=== PATIENT | male | born 1970 | race Caucasian/White ===

== ENCOUNTER 2021-10-15 11:16 | Outpatient (REF) | payer OTHER, SELFPAY | END 2021-10-15 11:17 | disposition home or self-care (01) | LOC: HO.BBR 11:16 | PROVIDERS: PCP Internal Medicine; Visit Provider Internal Medicine | DX: Z13.89 Encounter for screening for other disorder (principal) ==

== ENCOUNTER 2021-11-12 12:01 | Outpatient (REF) | payer OTHER, SELFPAY | END 2021-11-12 12:02 | disposition home or self-care (01) | LOC: HO.BBR 12:01 | PROVIDERS: Visit Provider Internal Medicine | DX: Z13.89 Encounter for screening for other disorder (principal) ==

== ENCOUNTER 2021-12-19 11:08 | Outpatient (REF) | payer OTHER, SELFPAY | END 2021-12-19 11:09 | disposition home or self-care (01) | LOC: HO.BBR 11:08 | PROVIDERS: Visit Provider Internal Medicine | DX: Z13.89 Encounter for screening for other disorder (principal) ==

== ENCOUNTER 2022-01-20 12:11 | Outpatient (REF) | payer OTHER, SELFPAY | END 2022-01-20 12:12 | disposition home or self-care (01) | LOC: HO.BBR 12:11 | PROVIDERS: Visit Provider Internal Medicine | DX: Z13.89 Encounter for screening for other disorder (principal) ==

== ENCOUNTER 2022-02-20 09:04 | Outpatient (REF) | payer OTHER, SELFPAY | END 2022-02-20 09:05 | disposition home or self-care (01) | LOC: HO.BBR 09:04 | PROVIDERS: Visit Provider Internal Medicine | DX: Z13.89 Encounter for screening for other disorder (principal) ==

== ENCOUNTER 2022-03-30 10:00 | Outpatient (REF) | payer OTHER, SELFPAY ==
[2022-03-30 11:48] LABS: Iron 160 mcg/dL (45-160); Percent Iron Saturation 58 % (15-50); Total Iron Binding Capacity 278 mcg/dL (228-428); Unsaturated Iron Binding 118 ug/dL
[2022-03-30 11:52] LABS: Ferritin 150 ng/mL (20-250)
--- NOTE | 2024-02-16 10:00 | MHC.HEMONCMA ---
FROM HEMATOLOGY/ONCOLOGY called patient for a new patient appointment that we received from [facility], prior to calling patient i faxed referral back to [place] and told them for a DX of hemochromotosis we need atleast a ferritin/iron/HFE - been a week and have not received any of those labs. i called patient and explained to him that we need atleast a ferritin and an iron from his pcp prior to scheduling him an appointment here. he was upset and asked cant you just do fresh blood work there? 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
== END 2022-03-30 10:01 | disposition home or self-care (01) ==
LOC: HO.BBR 10:00
PROVIDERS: Visit Provider Internal Medicine
DX: E83.110 Hereditary hemochromatosis (principal)
CPT/HCPCS: 36415; 82728; 83540

== ENCOUNTER 2025-05-17 08:01 | Outpatient (AMB) | payer OTHER, SELFPAY ==
--- NOTE | 2025-05-17 08:06 | MHC.OFFVIS ---
Vital Signs 05/17/25 08:13 Height 5 ft 11 in Weight 226 lb BMI 31.5 BP 111/58 L Blood Pressure Location Lt brachial Position Sitting Pulse 50 Pulse Oximetry (%) 95 Oxygen Delivery Method Room Air Intake Visit Reasons: colo screening Intake Note: Patient new consult for 1st pre Colonoscopy screening. Patient denies any GI issues for today visit. Piece Hand Required: No Accompanied by: Self / Same As Patient Allergies Penicillins Allergy (Mild, Verified 05/17/25 08:24) Hives Medication List - Last Reconciled 05/17/25 by Cheyanne Vaughan CNP aspirin 81 mg PO DAILY clopidogrel 75 mg PO DAILY escitalopram oxalate 20 mg PO DAILY ezetimibe 10 mg PO DAILY fenofibrate 160 mg PO DAILY metoprolol succinate ER 12.5 mg PO BEDTIME rosuvastatin 10 mg PO DAILY testosterone 178 mg transdermal QAM HPI HPI colo screening: Details: Patient is a 54-year-old male with PMH of PADMA, hypertension, hyperlipidemia, CAD s/p [place] and arrest followed by stent placement, August 2023. Referred by PCP for pre colonoscopy screening This will be Johnny's first colonoscopy. He reports no prior GI cancer screening via stool testing. He reports having daily bowel movements without concerns for constipation, diarrhea, overt rectal bleeding, or changes in stool caliber. He denies abdominal pain, nausea, vomiting, or dysphagia. There is no history of unexplained weight loss; weight has remained stable with minor (<= 5lb) fluctuations. No heartburn reported. Notably, he experienced a cardiac arrest due to complete circumflex coronary artery blockage in August and subsequently underwent cardiac intervention; he remains under cardiology care with ongoing medication management. No other non-GI symptoms or comorbidities relevant to GI procedure risk reported. Patient denies: appetite changes, regurgitation,dysphasia, unintentional wt loss, ab pain or melena/hematochezia. 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 PFSH Medical History (Updated 05/17/25 @ 08:11 by Cheyanne Vaughan CNP) Colon cancer screening Surgical History Hx of right coronary artery stent placement Family History (Updated 05/17/25 @ 08:29 by Cheyanne Vaughan CNP) Family/Other CAD (coronary artery disease) Social History Household Members: Family Alcohol intake: never Patient Tobacco Use Status: Former Tobacco user Use of substances other than those prescribed or required for medical reasons: No Review of Systems Const Reports as per HPI ENT Reports as per HPI Card Reports as per HPI Resp Reports as per HPI GI Reports as per HPI Reports as per HPI Physical Exam Const General: healthy appearing, no acute distress and well developed Nutritional Appearance: average body habitus Orientation/consciousness: patient oriented x3 HEENT Head: Yes normal to inspection, Yes normocephalic and Yes atraumatic Face and sinus: Yes normal facial exam Eyes General: appearance normal, both eyes and all related structures Neck Neck: Yes normal visual inspection Resp Effort & Inspection: normal respiratory effort, able to speak in complete sentences, no tracheal deviation and symmetric chest movement Cardio Jugular venous distension: no JVD GI Auscultation: normal bowel sounds Neuro General: patient oriented x3 Gait exam (Neuro): Normal gait present Psych Appearance: grossly normal Mental Status: mental status grossly normal Speech and movement: Normal speech and movement present Affect: normal affect Attitude: cooperative Thought process: Normal thought process present Thought content: Normal thought content present Insight: Good insight present (Psych) Judgement: Good judgement present (Psych) Assessment & Plan Assessment & Plan (1) Colon cancer screening: Code(s): Z12.11 - Encounter for screening for malignant neoplasm of colon Category: Medical Plan: Due for index screening colonoscopy. No alarm features. Medications: -prescriptions for laxative tablets and MiraLax sent to pharmacy; instructions for Gatorade purchase and clear liquid diet given. - understands we will coordinate with cardiology for benjamin-procedural hold of aspirin and clopidogrel (per prior guidance, typically 5?7 days before procedure). Nurse to review med holds per protocol. Patient educated on scheduling process, procedure preparation, including avoiding certain foods and ensuring clear liquid intake Advised on necessity for ride post-procedure due to sedation. Plan Follow-up after colonoscopy as warranted or sooner if needed Time: I spent a total of 30 minutes on the date of encounter which includes: Preparing to see the patient (reviewed previous documentation, test results and medical history) Performing a medically appropriate exam and/or evaluation Ordering medications, tests, and procedures Documenting clinical information in the health record Orders: Referrals GI Procedure Notification Z12.11 - Encounter for screening for malignant neoplasm of colon Medications: New bisacodyl Take per colonoscopy instructions 5 mg PO ONCE 4 tabs 0RF polyethylene glycol 3350 (Miralax) per colonoscopy prep instructions 238 grams PO ONCE 238 grams 0RF Coding Level of Care Code New Pt New Pt Level 3 (26962) Patient Type New Diagnoses Colon cancer screening Z12.11
--- OUTSIDE RECORDS SUMMARY | 2025-05-17 08:08 | XMS_ITS | Patient Health Record ---
Author Organization [facility] Address [address] [place] [address] Care Team Providers Care Pedicurist Name Role Phone MERI GANN Primary Care Provider Allergies Allergen (clinical drug ingredient) Drug/Non Drug Allergy documented on EMR Reaction Allergy Type Onset Date Status penicillamine penicillAMINE Unknown Drug Allergy Active Results Component Value Reference Range Notes PSA (Serial Monitor)-[id number] Reviewed date:12/22/2024 07:28:51 AM Interpretation: Performing Lab:[facility], [facility], [place], Phone - [phone], Director - Josee Notes/Report: Prostate Specific Ag 0.2 0.0-4.0 ng/mL Davy ECLIA methodology. . According to the [place] [employer], Serum PSA should decrease and remain at undetectable levels after radical prostatectomy. The AUA defines biochemical recurrence as an initial PSA value 0.2 ng/mL or greater followed by a subsequent confirmatory PSA value 0.2 ng/mL or greater. Values obtained with different assay methods or kits cannot be used interchangeably. Results cannot be interpreted as absolute evidence of the presence or absence of malignant disease. Hemoglobin [id number] Reviewed date:12/22/2024 07:28:53 AM Interpretation: Performing Lab:[facility], [address], [place], Phone - [phone], Director - Josee Notes/Report: Hemoglobin A1c 5.4 4.8-5.6 % . Prediabetes: 5.7 - 6.4 Diabetes: >6.4 Glycemic control for adults with diabetes: <7.0 Lipid Panel-[id number] Reviewed date:12/22/2024 07:28:56 AM Interpretation: Performing Lab:[facility], [address] [facility], [place], Phone - [phone], Director - MDJodry Notes/Report: Cholesterol, Total 130 100-199 mg/dL Triglycerides 179 0-149 mg/dL HDL Cholesterol 36 >39 mg/dL VLDL Cholesterol Neri 30 5-40 mg/dL LDL Chol Calc ([facility]) 64 0-99 mg/dL Comp. Metabolic Panel (14)-3 Reviewed date:12/22/2024 07:28:59 AM Interpretation: Performing Lab:[facility], [address] [facility], [place], Phone - [phone], Director - MDJoy Notes/Report: Glucose 96 70-99 mg/dL BUN 22 6-24 mg/dL Creatinine 0.93 0.76-1.27 mg/dL eGFR 98 >59 mL/min/1.73 BUN/Creatinine Ratio 24 9-20 Sodium 140 134-144 mmol/L Potassium 4.2 3.5-5.2 mmol/L Chloride 102 96-106 mmol/L Carbon Dioxide, Total 22 20-29 mmol/L Calcium 10.0 8.7-10.2 mg/dL Protein, Total 7.2 6.0-8.5 g/dL Albumin 4.9 3.8-4.9 g/dL Globulin, Total 2.3 1.5-4.5 g/dL Bilirubin, Total 0.5 0.0-1.2 mg/dL Alkaline Phosphatase 41 44-121 IU/L AST (SGOT) 30 0-40 IU/L ALT (SGPT) 36 0-44 IU/L Albumin/Creatinine Ratio,Uri ne-[id number] Reviewed date:12/22/2024 07:29:03 AM Interpretation: Performing Lab:Merritt Armstrong, [address] [facility], [place], Phone - [phone], Director - MDJodry Notes/Report: Creatinine, Urine 28.9 Not Estab. mg/dL Albumin, Urine <3.0 Not Estab. ug/mL Alb/Creat Ratio <10 0-29 mg/g creat Normal: 0 - 29 Moderately increased: 30 - 300 Severely increased: >300 Reason For Referral Reason Evaluation and manag ement - colonoscopy Diagnosis 1 Encounter for screen ing for malignant neoplasm of colon (Z12.11) Referral Organization [facility] Referring Provider First Name MERI Referring Provider Last Name LEE ANN Referring Provider Speciality Internal M edicine Referred Provider Specialty Gastroentero logy General Notes Referral sent to [facility] ([address] [address] ) - Office will call patient for scheduling., Nikolas Saturninoivett 06/28/2024 10:46:23 AM > Referral Priority Routine Reason screening Please e valuate and treat Diagnosis 1 Encounter for screen ing for other digestive system disorders (Z13.818) Referral Organization [facility] Referring Provider First Name JEREZ Referring Provider Last Name [facility] Referring Provider Speciality Internal M edicine Referred Provider Specialty Gastroentero logy General Notes Please call the betzy ent to schedule the appointment, Erica Mcpherson 11/28/2024 03:11:32 PM > Referral Priority Routine Reason Screening- [facility] [place] Please evaluate and treat Diagnosis 1 Encounter for screen ing for malignant neoplasm of skin (Z12.83) Referral Organization [facility] Referring Provider First Name MERI Referring Provider Last Name [facility] Referring Provider Speciality Internal edicine Referred Provider Specialty Dermatology General Notes Please call the betzy ent to schedule the appointment, Erica Mcpherson 11/28/2024 03:08:26 PM > Referral Priority Routine Medications Medication SIG (Take, Route, Frequency, Duration) Notes Start Date End Date Status Metoprolol Succinate 25 MG 1/2 capsule O rally Once a day Active Aspir-81 Active Fenofibrate 160 MG 1 tablet Orally Once a day Active Zetia 10 MG 1 tablet Orally Once a day Active Lipitor 20 MG 1 tablet Orally Once a day Active Plavix 75 MG 1 tablet Orally Once a day Active Lexapro 10 MG 1 tablet Orally Once a day Active Social History Tobacco Use: Social History Observation Description Date Details (start date - stop date) Former Smoker NA - NA Tobacco Control (Standard) Question Answer Notes Tobacco use: Former smoker Problems Problem Type SNOMED Code ICD Code Onset Dates Problem Status W/U Status Risk Notes Problem Mixed hyperlipidemia (468293681) Mixed hyperlipidemia (E78.2) Active confirmed Problem Generalized anxiety disorder (95317371) Generalized anxiety disorder (F41.1) Active confirmed Problem Essential hypertension (77006236) Essential (primary) hypertension (I10) Active confirmed Problem Amnesia (96205067) Complaints of memory disturbance (R41.3) Active confirmed Problem Atherosclerotic heart disease of [place] coronary artery without angina pectoris (042715263037471) Coronary artery disease involving [place] coronary artery of [place] heart without angina pectoris (I25.10) Active confirmed Problem Male hypogonadism (11922036) Hypogonadism in male (E29.1) Active confirmed Vital Signs Heart Rate 60 /min 11/13/2024 Temperature 97.0 degrees Fahrenheit 11/13/2024 Oximetry 96 % 11/13/2024 Blood pressure diastolic 79 mm Hg 11/13/2024 Height 5'11'' in 11/13/2024 Blood pressure systolic 120 mm Hg 11/13/2024 Weight 229.7 lbs 11/13/2024 BMI 32.03 kg/m2 11/13/2024 Encounters Encounter Location Date Provider Diagnosis [address] [place] [address] 06/21/2024 MERI GANN Coronary artery dise ase involving [place] coronary artery of [place] heart without angina pectoris I25.10 ; Essential (primary) hypertension I10 ; Mixed hyperlipidemia E78.2 ; Personal history of nicotine dependence Z87.891 ; Complaints of memory disturbance R41.3 ; Impaired fasting glucose R73.01 ; Hypogonadism in male E29.1 ; Generalized anxiety disorder F41.1 and Encounter for screening for malignant neoplasm of prostate Z12.[address] [place] [address] 11/13/2024 MERI GANN Coronary artery dise ase involving [place] coronary artery of [place] heart without angina pectoris I25.10 ; Annual physical exam Z00.00 ; Essential (primary) hypertension I10 ; Mixed hyperlipidemia E78.2 ; Personal history of nicotine dependence Z87.891 ; Complaints of memory disturbance R41.3 ; Impaired fasting glucose R73.01 ; Hypogonadism in male E29.1 ; Generalized anxiety disorder F41.1 and Encounter for screening for malignant neoplasm of prostate Z12.[address] [place] [address] 06/28/2024 MERI GANN Assessments Encounter Date Diagnosis (ICD Code) Assessment Notes Treatment Notes Treatment Clinical Notes Section Notes 06/21/2024 Essential (primary) hypertension (ICD-10 - I10) Mr. Arriaga is a 53-year-old gentleman with hypertension, hyperlipidemia, CAD s/p heart attack; follows up with Cardiology, hypogonadism, and generalized anxiety disorder here to establish care. Plan is as follows: Hypertension. Blood pressure well controlled on Metoprolol 25 MG, Aspirin and Plavix 75 MG. Hyperlipidemia. Continue Lipitor 20 MG along with Zetia 10 MG and Fenofibrate 60 MG once a day. CAD. s/p cardiac arrest. Stable at this point. Optimize medical management. Weight loss advised. Generalized anxiety disorder. Mood is stable on Lexapro 10 MG daily. Impaired fasting glucose. Dietary restrictions, regimental exercise and weight loss advised. check A1c. Cognitive impairment. Differential diagnosis is atherosclerotic disease/early signs of vascular dementia, status post cardiac arrest. No need for pharmacotherapy at this point. Advised lifestyle changes, incorporate regular exercise, weight loss, inappropriate sleep and rule out sleep apnea because of his body habitus Class 1 obesity. Advised dietary restrictions and regimental exercise. Goal is to lose 5-6 lbs a month. Eye screening. 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 Dental screening. He sees dentist regularly. Colon cancer screening. Referred to GI for colonoscopy. Immunizations. He is up-to-date on his COVID-19 vaccinations. Screening blood work before next appointment. General health concerns discussed with patient. Scribe services used to formulate this note under HIPAA compliance and under [place] law mandated for scribe services. Patient aware of service. Verbal consent and written consent taken from the patient. Patient understands and verbalizes understanding of the scribes services and all questions answered regarding scribes services. Patient agrees to use of scribes services. 06/21/2024 Coronary artery disease involving [place] coronary artery of [place] heart without angina pectoris (ICD-10 - I25.10) Mr. Arriaga is a 53-year-old gentleman with hypertension, hyperlipidemia, CAD s/p heart attack; follows up with Cardiology, hypogonadism, and generalized anxiety disorder here to establish care. Plan is as follows: Hypertension. Blood pressure well controlled on Metoprolol 25 MG, Aspirin and Plavix 75 MG. Hyperlipidemia. Continue Lipitor 20 MG along with Zetia 10 MG and Fenofibrate 60 MG once a day. CAD. s/p cardiac arrest. Stable at this point. Optimize medical management. Weight loss advised. Generalized anxiety disorder. Mood is stable on Lexapro 10 MG daily. Impaired fasting glucose. Dietary restrictions, regimental exercise and weight loss advised. check A1c. Cognitive impairment. Differential diagnosis is atherosclerotic disease/early signs of vascular dementia, status post cardiac arrest. No need for pharmacotherapy at this point. Advised lifestyle changes, incorporate regular exercise, weight loss, inappropriate sleep and rule out sleep apnea because of his body habitus Class 1 obesity. Advised dietary restrictions and regimental exercise. Goal is to lose 5-6 lbs a month. Eye screening. 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 Dental screening. He sees dentist regularly. Colon cancer screening. Referred to GI for colonoscopy. Immunizations. He is up-to-date on his COVID-19 vaccinations. Screening blood work before next appointment. General health concerns discussed with patient. Scribe services used to formulate this note under HIPAA compliance and under [place] law mandated for scribe services. Patient aware of service. Verbal consent and written consent taken from the patient. Patient understands and verbalizes understanding of the scribes services and all questions answered regarding scribes services. Patient agrees to use of scribes services. 11/13/2024 Annual physical exam (ICD-10 - Z00.00) Mr. Arriaga is a 53-year-old gentleman with hypertension, hyperlipidemia, CAD s/p heart attack; follows up with Cardiology, hypogonadism, and generalized anxiety disorder here annual physical. Plan is as follows: Hypertension. Blood pressure well controlled on Metoprolol 25 MG, Aspirin and Plavix 75 MG. EKG is normal sinus rhythm at 56 bpm with no acute ST or T wave changes Hyperlipidemia. Continue Lipitor 20 MG along with Zetia 10 MG and Fenofibrate 60 MG once a day. CAD. s/p cardiac arrest. Stable at this point. Optimize medical management. Weight loss advised. Generalized anxiety disorder. Mood is stable on Lexapro 10 MG daily. Impaired fasting glucose. Dietary restrictions, regimental exercise and weight loss advised. check A1c. insomnia. Sleep hygiene discussed with the patient. He checks his oxygen saturations and average is 95%. He was tested for sleep apnea and it was negative. Cognitive impairment. Differential diagnosis is atherosclerotic disease/early signs of vascular dementia, status post cardiac arrest. No need for pharmacotherapy at this point. Advised lifestyle changes, incorporate regular exercise, weight loss, inappropriate sleep and rule out sleep apnea because of his body habitus Class 1 obesity. Advised dietary restrictions and regimental exercise. Goal is to lose 5-6 lbs a month. Eye screening. 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 Dental screening. He sees dentist regularly. Colon cancer screening. Referred to GI for colonoscopy. Immunizations. He is up-to-date on his COVID-19 vaccinations. Screening blood work before next appointment. General health concerns discussed with patient. 11/13/2024 Coronary artery disease involving [place] coronary artery of [place] heart without angina pectoris (ICD-10 - I25.10) Mr. Arriaga is a 53-year-old gentleman with hypertension, hyperlipidemia, CAD s/p heart attack; follows up with Cardiology, hypogonadism, and generalized anxiety disorder here annual physical. Plan is as follows: Hypertension. Blood pressure well controlled on Metoprolol 25 MG, Aspirin and Plavix 75 MG. EKG is normal sinus rhythm at 56 bpm with no acute [address] or T wave changes Hyperlipidemia. Continue Lipitor 20 MG along with Zetia 10 MG and Fenofibrate 60 MG once a day. CAD. s/p cardiac arrest. Stable at this point. Optimize medical management. Weight loss advised. Generalized anxiety disorder. Mood is stable on Lexapro 10 MG daily. Impaired fasting glucose. Dietary restrictions, regimental exercise and weight loss advised. check A1c. insomnia. Sleep hygiene discussed with the patient. He checks his oxygen saturations and average is 95%. He was tested for sleep apnea and it was negative. Cognitive impairment. Differential diagnosis is atherosclerotic disease/early signs of vascular dementia, status post cardiac arrest. No need for pharmacotherapy at this point. Advised lifestyle changes, incorporate regular exercise, weight loss, inappropriate sleep and rule out sleep apnea because of his body habitus Class 1 obesity. Advised dietary restrictions and regimental exercise. Goal is to lose 5-6 lbs a month. Eye screening. 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 Dental screening. He sees dentist regularly. Colon cancer screening. Referred to GI for colonoscopy. Immunizations. He is up-to-date on his COVID-19 vaccinations. Screening blood work before next appointment. General health concerns discussed with patient. 06/21/2024 Mixed hyperlipidemia (ICD-10 - E78.2) Mr. Arriaga is a 53-year-old gentleman with hypertension, hyperlipidemia, CAD s/p heart attack; follows up with Cardiology, hypogonadism, and generalized anxiety disorder here to establish care. Plan is as follows: Hypertension. Blood pressure well controlled on Metoprolol 25 MG, Aspirin and Plavix 75 MG. Hyperlipidemia. Continue Lipitor 20 MG along with Zetia 10 MG and Fenofibrate 60 MG once a day. CAD. s/p cardiac arrest. Stable at this point. Optimize medical management. Weight loss advised. Generalized anxiety disorder. Mood is stable on Lexapro 10 MG daily. Impaired fasting glucose. Dietary restrictions, regimental exercise and weight loss advised. check A1c. Cognitive impairment. Differential diagnosis is atherosclerotic disease/early signs of vascular dementia, status post cardiac arrest. No need for pharmacotherapy at this point. Advised lifestyle changes, incorporate regular exercise, weight loss, inappropriate sleep and rule out sleep apnea because of his body habitus Class 1 obesity. Advised dietary restrictions and regimental exercise. Goal is to lose 5-6 lbs a month. Eye screening. 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 Dental screening. He sees dentist regularly. Colon cancer screening. Referred to GI for colonoscopy. Immunizations. He is up-to-date on his COVID-19 vaccinations. Screening blood work before next appointment. General health concerns discussed with patient. Scribe services used to formulate this note under HIPAA compliance and under [place] law mandated for scribe services. Patient aware of service. Verbal consent and written consent taken from the patient. Patient understands and verbalizes understanding of the scribes services and all questions answered regarding scribes services. Patient agrees to use of scribes services. 11/13/2024 Essential (primary) hypertension (ICD-10 - I10) Mr. Arriaga is a 53-year-old gentleman with hypertension, hyperlipidemia, CAD s/p heart attack; follows up with Cardiology, hypogonadism, and generalized anxiety disorder here annual physical. Plan is as follows: Hypertension. Blood pressure well controlled on Metoprolol 25 MG, Aspirin and Plavix 75 MG. EKG is normal sinus rhythm at 56 bpm with no acute [address] or T wave changes Hyperlipidemia. Continue Lipitor 20 MG along with Zetia 10 MG and Fenofibrate 60 MG once a day. CAD. s/p cardiac arrest. Stable at this point. Optimize medical management. Weight loss advised. Generalized anxiety disorder. Mood is stable on Lexapro 10 MG daily. Impaired fasting glucose. Dietary restrictions, regimental exercise and weight loss advised. check A1c. insomnia. Sleep hygiene discussed with the patient. He checks his oxygen saturations and average is 95%. He was tested for sleep apnea and it was negative. Cognitive impairment. Differential diagnosis is atherosclerotic disease/early signs of vascular dementia, status post cardiac arrest. No need for pharmacotherapy at this point. Advised lifestyle changes, incorporate regular exercise, weight loss, inappropriate sleep and rule out sleep apnea because of his body habitus Class 1 obesity. Advised dietary restrictions and regimental exercise. Goal is to lose 5-6 lbs a month. Eye screening. 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 Dental screening. He sees dentist regularly. Colon cancer screening. Referred to GI for colonoscopy. Immunizations. He is up-to-date on his COVID-19 vaccinations. Screening blood work before next appointment. General health concerns discussed with patient. 06/21/2024 Personal history of nicotine dependence (ICD-10 - Z87.891) Mr. Arriaga is a 53-year-old gentleman with hypertension, hyperlipidemia, CAD s/p heart attack; follows up with Cardiology, hypogonadism, and generalized anxiety disorder here to establish care. Plan is as follows: Hypertension. Blood pressure well controlled on Metoprolol 25 MG, Aspirin and Plavix 75 MG. Hyperlipidemia. Continue Lipitor 20 MG along with Zetia 10 MG and Fenofibrate 60 MG once a day. CAD. s/p cardiac arrest. Stable at this point. Optimize medical management. Weight loss advised. Generalized anxiety disorder. Mood is stable on Lexapro 10 MG daily. Impaired fasting glucose. Dietary restrictions, regimental exercise and weight loss advised. check A1c. Cognitive impairment. Differential diagnosis is atherosclerotic disease/early signs of vascular dementia, status post cardiac arrest. No need for pharmacotherapy at this point. Advised lifestyle changes, incorporate regular exercise, weight loss, inappropriate sleep and rule out sleep apnea because of his body habitus Class 1 obesity. Advised dietary restrictions and regimental exercise. Goal is to lose 5-6 lbs a month. Eye screening. 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 Dental screening. He sees dentist regularly. Colon cancer screening. Referred to GI for colonoscopy. Immunizations. He is up-to-date on his COVID-19 vaccinations. Screening blood work before next appointment. General health concerns discussed with patient. Scribe services used to formulate this note under HIPAA compliance and under [place] law mandated for scribe services. Patient aware of service. Verbal consent and written consent taken from the patient. Patient understands and verbalizes understanding of the scribes services and all questions answered regarding scribes services. Patient agrees to use of scribes services. 11/13/2024 Mixed hyperlipidemia (ICD-10 - E78.2) Mr. Arriaga is a 53-year-old gentleman with hypertension, hyperlipidemia, CAD s/p heart attack; follows up with Cardiology, hypogonadism, and generalized anxiety disorder here annual physical. Plan is as follows: Hypertension. Blood pressure well controlled on Metoprolol 25 MG, Aspirin and Plavix 75 MG. EKG is normal sinus rhythm at 56 [address]pm with no acute [address] or T wave changes Hyperlipidemia. Continue Lipitor 20 MG along with Zetia 10 MG and Fenofibrate 60 MG once a day. CAD. s/p cardiac arrest. Stable at this point. Optimize medical management. Weight loss advised. Generalized anxiety disorder. Mood is stable on Lexapro 10 MG daily. Impaired fasting glucose. Dietary restrictions, regimental exercise and weight loss advised. check A1c. insomnia. Sleep hygiene discussed with the patient. He checks his oxygen saturations and average is 95%. He was tested for sleep apnea and it was negative. Cognitive impairment. Differential diagnosis is atherosclerotic disease/early signs of vascular dementia, status post cardiac arrest. No need for pharmacotherapy at this point. Advised lifestyle changes, incorporate regular exercise, weight loss, inappropriate sleep and rule out sleep apnea because of his body habitus Class 1 obesity. Advised dietary restrictions and regimental exercise. Goal is to lose 5-6 lbs a month. Eye screening. 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 Dental screening. He sees dentist regularly. Colon cancer screening. Referred to GI for colonoscopy. Immunizations. He is up-to-date on his COVID-19 vaccinations. Screening blood work before next appointment. General health concerns discussed with patient. 11/13/2024 Personal history of nicotine dependence (ICD-10 - Z87.891) Mr. Arriaga is a 53-year-old gentleman with hypertension, hyperlipidemia, CAD s/p heart attack; follows up with Cardiology, hypogonadism, and generalized anxiety disorder here annual physical. Plan is as follows: Hypertension. Blood pressure well controlled on Metoprolol 25 MG, Aspirin and Plavix 75 MG. EKG is normal sinus rhythm at 56 bpm with no acute ST or T wave changes Hyperlipidemia. Continue Lipitor 20 MG along with Zetia 10 MG and Fenofibrate 60 MG once a day. CAD. s/p cardiac arrest. Stable at this point. Optimize medical management. Weight loss advised. Generalized anxiety disorder. Mood is stable on Lexapro 10 MG daily. Impaired fasting glucose. Dietary restrictions, regimental exercise and weight loss advised. check A1c. insomnia. Sleep hygiene discussed with the patient. He checks his oxygen saturations and average is 95%. He was tested for sleep apnea and it was negative. Cognitive impairment. Differential diagnosis is atherosclerotic disease/early signs of vascular dementia, status post cardiac arrest. No need for pharmacotherapy at this point. Advised lifestyle changes, incorporate regular exercise, weight loss, inappropriate sleep and rule out sleep apnea because of his body habitus Class 1 obesity. Advised dietary restrictions and regimental exercise. Goal is to lose 5-6 lbs a month. Eye screening. 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 Dental screening. He sees dentist regularly. Colon cancer screening. Referred to GI for colonoscopy. Immunizations. He is up-to-date on his COVID-19 vaccinations. Screening blood work before next appointment. General health concerns discussed with patient. 06/21/2024 Complaints of memory disturbance (ICD-10 - R41.3) Mr. Arriaga is a 53-year-old gentleman with hypertension, hyperlipidemia, CAD s/p heart attack; follows up with Cardiology, hypogonadism, and generalized anxiety disorder here to establish care. Plan is as follows: Hypertension. Blood pressure well controlled on Metoprolol 25 MG, Aspirin and Plavix 75 MG. Hyperlipidemia. Continue Lipitor 20 MG along with Zetia 10 MG and Fenofibrate 60 MG once a day. CAD. s/p cardiac arrest. Stable at this point. Optimize medical management. Weight loss advised. Generalized anxiety disorder. Mood is stable on Lexapro 10 MG daily. Impaired fasting glucose. Dietary restrictions, regimental exercise and weight loss advised. check A1c. Cognitive impairment. Differential diagnosis is atherosclerotic disease/early signs of vascular dementia, status post cardiac arrest. No need for pharmacotherapy at this point. Advised lifestyle changes, incorporate regular exercise, weight loss, inappropriate sleep and rule out sleep apnea because of his body habitus Class 1 obesity. Advised dietary restrictions and regimental exercise. Goal is to lose 5-6 lbs a month. Eye screening. 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 Dental screening. He sees dentist regularly. Colon cancer screening. Referred to GI for colonoscopy. Immunizations. He is up-to-date on his COVID-19 vaccinations. Screening blood work before next appointment. General health concerns discussed with patient. Scribe services used to formulate this note under HIPAA compliance and under [place] law mandated for scribe services. Patient aware of service. Verbal consent and written consent taken from the patient. Patient understands and verbalizes understanding of the scribes services and all questions answered regarding scribes services. Patient agrees to use of scribes services. 06/21/2024 Impaired fasting glucose (ICD-10 - R73.01) Mr. Arriaga is a 53-year-old gentleman with hypertension, hyperlipidemia, CAD s/p heart attack; follows up with Cardiology, hypogonadism, and generalized anxiety disorder here to establish care. Plan is as follows: Hypertension. Blood pressure well controlled on Metoprolol 25 MG, Aspirin and Plavix 75 MG. Hyperlipidemia. Continue Lipitor 20 MG along with Zetia 10 MG and Fenofibrate 60 MG once a day. CAD. s/p cardiac arrest. Stable at this point. Optimize medical management. Weight loss advised. Generalized anxiety disorder. Mood is stable on Lexapro 10 MG daily. Impaired fasting glucose. Dietary restrictions, regimental exercise and weight loss advised. check A1c. Cognitive impairment. Differential diagnosis is atherosclerotic disease/early signs of vascular dementia, status post cardiac arrest. No need for pharmacotherapy at this point. Advised lifestyle changes, incorporate regular exercise, weight loss, inappropriate sleep and rule out sleep apnea because of his body habitus Class 1 obesity. Advised dietary restrictions and regimental exercise. Goal is to lose 5-6 lbs a month. Eye screening. 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 Dental screening. He sees dentist regularly. Colon cancer screening. Referred to GI for colonoscopy. Immunizations. He is up-to-date on his COVID-19 vaccinations. Screening blood work before next appointment. General health concerns discussed with patient. Scribe services used to formulate this note under HIPAA compliance and under [place] law mandated for scribe services. Patient aware of service. Verbal consent and written consent taken from the patient. Patient understands and verbalizes understanding of the scribes services and all questions answered regarding scribes services. Patient agrees to use of scribes services. 11/13/2024 Complaints of memory disturbance (ICD-10 - R41.3) Mr. Arriaga is a 53-year-old gentleman with hypertension, hyperlipidemia, CAD s/p heart attack; follows up with Cardiology, hypogonadism, and generalized anxiety disorder here annual physical. Plan is as follows: Hypertension. Blood pressure well controlled on Metoprolol 25 MG, Aspirin and Plavix 75 MG. EKG is normal sinus rhythm at [address] with no acute [address] or T wave changes Hyperlipidemia. Continue Lipitor 20 MG along with Zetia 10 MG and Fenofibrate 60 MG once a day. CAD. s/p cardiac arrest. Stable at this point. Optimize medical management. Weight loss advised. Generalized anxiety disorder. Mood is stable on Lexapro 10 MG daily. Impaired fasting glucose. Dietary restrictions, regimental exercise and weight loss advised. check A1c. insomnia. Sleep hygiene discussed with the patient. He checks his oxygen saturations and average is 95%. He was tested for sleep apnea and it was negative. Cognitive impairment. Differential diagnosis is atherosclerotic disease/early signs of vascular dementia, status post cardiac arrest. No need for pharmacotherapy at this point. Advised lifestyle changes, incorporate regular exercise, weight loss, inappropriate sleep and rule out sleep apnea because of his body habitus Class 1 obesity. Advised dietary restrictions and regimental exercise. Goal is to lose 5-6 lbs a month. Eye screening. 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 Dental screening. He sees dentist regularly. Colon cancer screening. Referred to GI for colonoscopy. Immunizations. He is up-to-date on his COVID-19 vaccinations. Screening blood work before next appointment. General health concerns discussed with patient. 11/13/2024 Impaired fasting glucose (ICD-10 - R73.01) Mr. Arriaga is a 53-year-old gentleman with hypertension, hyperlipidemia, CAD s/p heart attack; follows up with Cardiology, hypogonadism, and generalized anxiety disorder here annual physical. Plan is as follows: Hypertension. Blood pressure well controlled on Metoprolol 25 MG, Aspirin and Plavix 75 MG. EKG is normal sinus rhythm at 56 bpm with no acute [address] or T wave changes Hyperlipidemia. Continue Lipitor 20 MG along with Zetia 10 MG and Fenofibrate 60 MG once a day. CAD. s/p cardiac arrest. Stable at this point. Optimize medical management. Weight loss advised. Generalized anxiety disorder. Mood is stable on Lexapro 10 MG daily. Impaired fasting glucose. Dietary restrictions, regimental exercise and weight loss advised. check A1c. insomnia. Sleep hygiene discussed with the patient. He checks his oxygen saturations and average is 95%. He was tested for sleep apnea and it was negative. Cognitive impairment. Differential diagnosis is atherosclerotic disease/early signs of vascular dementia, status post cardiac arrest. No need for pharmacotherapy at this point. Advised lifestyle changes, incorporate regular exercise, weight loss, inappropriate sleep and rule out sleep apnea because of his body habitus Class 1 obesity. Advised dietary restrictions and regimental exercise. Goal is to lose 5-6 lbs a month. Eye screening. 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 Dental screening. He sees dentist regularly. Colon cancer screening. Referred to GI for colonoscopy. Immunizations. He is up-to-date on his COVID-19 vaccinations. Screening blood work before next appointment. General health concerns discussed with patient. 06/21/2024 Hypogonadism in male (ICD-10 - E29.1) Mr. Arriaga is a 53-year-old gentleman with hypertension, hyperlipidemia, CAD s/p heart attack; follows up with Cardiology, hypogonadism, and generalized anxiety disorder here to establish care. Plan is as follows: Hypertension. Blood pressure well controlled on Metoprolol 25 MG, Aspirin and Plavix 75 MG. Hyperlipidemia. Continue Lipitor 20 MG along with Zetia 10 MG and Fenofibrate 60 MG once a day. CAD. s/p cardiac arrest. Stable at this point. Optimize medical management. Weight loss advised. Generalized anxiety disorder. Mood is stable on Lexapro 10 MG daily. Impaired fasting glucose. Dietary restrictions, regimental exercise and weight loss advised. check A1c. Cognitive impairment. Differential diagnosis is atherosclerotic disease/early signs of vascular dementia, status post cardiac arrest. No need for pharmacotherapy at this point. Advised lifestyle changes, incorporate regular exercise, weight loss, inappropriate sleep and rule out sleep apnea because of his body habitus Class 1 obesity. Advised dietary restrictions and regimental exercise. Goal is to lose 5-6 lbs a month. Eye screening. 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 Dental screening. He sees dentist regularly. Colon cancer screening. Referred to GI for colonoscopy. Immunizations. He is up-to-date on his COVID-19 vaccinations. Screening blood work before next appointment. General health concerns discussed with patient. Scribe services used to formulate this note under HIPAA compliance and under [place] law mandated for scribe services. Patient aware of service. Verbal consent and written consent taken from the patient. Patient understands and verbalizes understanding of the scribes services and all questions answered regarding scribes services. Patient agrees to use of scribes services. 06/21/2024 Generalized anxiety disorder (ICD-10 - F41.1) Mr. Arriaga is a 53-year-old gentleman with hypertension, hyperlipidemia, CAD s/p heart attack; follows up with Cardiology, hypogonadism, and generalized anxiety disorder here to establish care. Plan is as follows: Hypertension. Blood pressure well controlled on Metoprolol 25 MG, Aspirin and Plavix 75 MG. Hyperlipidemia. Continue Lipitor 20 MG along with Zetia 10 MG and Fenofibrate 60 MG once a day. CAD. s/p cardiac arrest. Stable at this point. Optimize medical management. Weight loss advised. Generalized anxiety disorder. Mood is stable on Lexapro 10 MG daily. Impaired fasting glucose. Dietary restrictions, regimental exercise and weight loss advised. check A1c. Cognitive impairment. Differential diagnosis is atherosclerotic disease/early signs of vascular dementia, status post cardiac arrest. No need for pharmacotherapy at this point. Advised lifestyle changes, incorporate regular exercise, weight loss, inappropriate sleep and rule out sleep apnea because of his body habitus Class 1 obesity. Advised dietary restrictions and regimental exercise. Goal is to lose 5-6 lbs a month. Eye screening. 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 Dental screening. He sees dentist regularly. Colon cancer screening. Referred to GI for colonoscopy. Immunizations. He is up-to-date on his COVID-19 vaccinations. Screening blood work before next appointment. General health concerns discussed with patient. Scribe services used to formulate this note under HIPAA compliance and under [place] law mandated for scribe services. Patient aware of service. Verbal consent and written consent taken from the patient. Patient understands and verbalizes understanding of the scribes services and all questions answered regarding scribes services. Patient agrees to use of scribes services. 11/13/2024 Hypogonadism in male (ICD-10 - E29.1) Mr. Arriaga is a 53-year-old gentleman with hypertension, hyperlipidemia, CAD s/p heart attack; follows up with Cardiology, hypogonadism, and generalized anxiety disorder here annual physical. Plan is as follows: Hypertension. Blood pressure well controlled on Metoprolol 25 MG, Aspirin and Plavix 75 MG. EKG is normal sinus rhythm at 56 bpm with no acute [address] or T wave changes Hyperlipidemia. Continue Lipitor 20 MG along with Zetia 10 MG and Fenofibrate 60 MG once a day. CAD. s/p cardiac arrest. Stable at this point. Optimize medical management. Weight loss advised. Generalized anxiety disorder. Mood is stable on Lexapro 10 MG daily. Impaired fasting glucose. Dietary restrictions, regimental exercise and weight loss advised. check A1c. insomnia. Sleep hygiene discussed with the patient. He checks his oxygen saturations and average is 95%. He was tested for sleep apnea and it was negative. Cognitive impairment. Differential diagnosis is atherosclerotic disease/early signs of vascular dementia, status post cardiac arrest. No need for pharmacotherapy at this point. Advised lifestyle changes, incorporate regular exercise, weight loss, inappropriate sleep and rule out sleep apnea because of his body habitus Class 1 obesity. Advised dietary restrictions and regimental exercise. Goal is to lose 5-6 lbs a month. Eye screening. 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 Dental screening. He sees dentist regularly. Colon cancer screening. Referred to GI for colonoscopy. Immunizations. He is up-to-date on his COVID-19 vaccinations. Screening blood work before next appointment. General health concerns discussed with patient. 11/13/2024 Generalized anxiety disorder (ICD-10 - F41.1) Mr. Arriaga is a 53-year-old gentleman with hypertension, hyperlipidemia, CAD s/p heart attack; follows up with Cardiology, hypogonadism, and generalized anxiety disorder here annual physical. Plan is as follows: Hypertension. Blood pressure well controlled on Metoprolol 25 MG, Aspirin and Plavix 75 MG. EKG is normal sinus rhythm at 56 bpm with no acute ST or T wave changes Hyperlipidemia. Continue Lipitor 20 MG along with Zetia 10 MG and Fenofibrate 60 MG once a day. CAD. s/p cardiac arrest. Stable at this point. Optimize medical management. Weight loss advised. Generalized anxiety disorder. Mood is stable on Lexapro 10 MG daily. Impaired fasting glucose. Dietary restrictions, regimental exercise and weight loss advised. check A1c. insomnia. Sleep hygiene discussed with the patient. He checks his oxygen saturations and average is 95%. He was tested for sleep apnea and it was negative. Cognitive impairment. Differential diagnosis is atherosclerotic disease/early signs of vascular dementia, status post cardiac arrest. No need for pharmacotherapy at this point. Advised lifestyle changes, incorporate regular exercise, weight loss, inappropriate sleep and rule out sleep apnea because of his body habitus Class 1 obesity. Advised dietary restrictions and regimental exercise. Goal is to lose 5-6 lbs a month. Eye screening. 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 Dental screening. He sees dentist regularly. Colon cancer screening. Referred to GI for colonoscopy. Immunizations. He is up-to-date on his COVID-19 vaccinations. Screening blood work before next appointment. General health concerns discussed with patient. 11/13/2024 Encounter for screening for malignant neoplasm of prostate (ICD-10 - Z12.5) Mr. Arriaga is a 53-year-old gentleman with hypertension, hyperlipidemia, CAD s/p heart attack; follows up with Cardiology, hypogonadism, and generalized anxiety disorder here annual physical. Plan is as follows: Hypertension. Blood pressure well controlled on Metoprolol 25 MG, Aspirin and Plavix 75 MG. EKG is normal sinus rhythm at 56 [address]pm with no acute ST or T wave changes Hyperlipidemia. Continue Lipitor 20 MG along with Zetia 10 MG and Fenofibrate 60 MG once a day. CAD. s/p cardiac arrest. Stable at this point. Optimize medical management. Weight loss advised. Generalized anxiety disorder. Mood is stable on Lexapro 10 MG daily. Impaired fasting glucose. Dietary restrictions, regimental exercise and weight loss advised. check A1c. insomnia. Sleep hygiene discussed with the patient. He checks his oxygen saturations and average is 95%. He was tested for sleep apnea and it was negative. Cognitive impairment. Differential diagnosis is atherosclerotic disease/early signs of vascular dementia, status post cardiac arrest. No need for pharmacotherapy at this point. Advised lifestyle changes, incorporate regular exercise, weight loss, inappropriate sleep and rule out sleep apnea because of his body habitus Class 1 obesity. Advised dietary restrictions and regimental exercise. Goal is to lose 5-6 lbs a month. Eye screening. 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 Dental screening. He sees dentist regularly. Colon cancer screening. Referred to GI for colonoscopy. Immunizations. He is up-to-date on his COVID-19 vaccinations. Screening blood work before next appointment. General health concerns discussed with patient. 06/21/2024 Encounter for screening for malignant neoplasm of prostate (ICD-10 - Z12.5) Mr. Arriaga is a 53-year-old gentleman with hypertension, hyperlipidemia, CAD s/p heart attack; follows up with Cardiology, hypogonadism, and generalized anxiety disorder here to establish care. Plan is as follows: Hypertension. Blood pressure well controlled on Metoprolol 25 MG, Aspirin and Plavix 75 MG. Hyperlipidemia. Continue Lipitor 20 MG along with Zetia 10 MG and Fenofibrate 60 MG once a day. CAD. s/p cardiac arrest. Stable at this point. Optimize medical management. Weight loss advised. Generalized anxiety disorder. Mood is stable on Lexapro 10 MG daily. Impaired fasting glucose. Dietary restrictions, regimental exercise and weight loss advised. check A1c. Cognitive impairment. Differential diagnosis is atherosclerotic disease/early signs of vascular dementia, status post cardiac arrest. No need for pharmacotherapy at this point. Advised lifestyle changes, incorporate regular exercise, weight loss, inappropriate sleep and rule out sleep apnea because of his body habitus Class 1 obesity. Advised dietary restrictions and regimental exercise. Goal is to lose 5-6 lbs a month. Eye screening. 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 Dental screening. He sees dentist regularly. Colon cancer screening. Referred to GI for colonoscopy. Immunizations. He is up-to-date on his COVID-19 vaccinations. Screening blood work before next appointment. General health concerns discussed with patient. Scribe services used to formulate this note under HIPAA compliance and under [place] law mandated for scribe services. Patient aware of service. Verbal consent and written consent taken from the patient. Patient understands and verbalizes understanding of the scribes services and all questions answered regarding scribes services. Patient agrees to use of scribes services. Plan Of Treatment Next Appt Details Provider Name:MERI GANN , 05/21/2025 02:45:00 PM, [address] [place] [address], [phone], Insurance Providers Payer Name Payer Address Payer Phone Subscriber Number Group Number Insured Name Patient Relationship to Insured Coverage Start Date Coverage End Date [facility] [address] [place] [phone] [id number] Johnny Arriaga Self - patient is the insured Medical (General) History Medical History History ICD Code hypertension hyperlipidemia CAD and s/p stent Circumflex artery and see Dr Graham [facility] hypogonadism Surgical History Surgery Date(Month/Year) stent placement
--- OUTSIDE RECORDS SUMMARY | 2025-05-17 08:08 | XMS_ITS | Encounter Summary ---
Author Organization [facility] Address [address] [place] [address] Care Team Providers Care Harvest Worker Name Role Phone Tera Foote MD PhD Primary Care Provider + [phone] Jc Graham MD Unavailable [phone] Reason for Visit * Reason Comments Med Change Request Encounter Details Date Type Department Care Team (Late st Contact Info) Description 12/18/2022 Refill [facility] Cardiology [address] [id number] Eduardo Fraga PA [address] [place] [id number] Med Change Request Social History Tobacco Use Types Packs/Day Years Used Date Smoking Tobacco: Never Assessed AUDIT-C Answer Date Recorded Q1: How often do you have a drink containing alc ohol? Monthly or less 09/18/2022 Q2: How many drinks containi ng alcohol do you have on a typical day when you are drinking? 1 or 2 09/18/2022 Q3: How often do you have si x or more drinks on one occasion? Never 09/18/2022 Sex and Gender Information Value Date Recorded Sex Assigned at Male 09/16/2022 2:00 PM EST Legal Sex Male 1:04 PM EST Gender Identity Male 09/16/2022 2:00 PM EST Sexual Orientation Heterosexual (straight) 09/16 2:00 PM EST COVID-19 Exposure Response Date Recorded In the last 10 days, have dima u been in contact with someone who was confirmed or suspected to have Coronavirus/COVID-19? No / Unsure 12/07/2022 11:58 AM EDT documented as of this encounter Plan of Treatment Upcoming Encounters Date Type Department Care Team (Late st Contact Info) Description 09/06/2025 9:15 AM EST Office Visit [facility] Cardiology [address] [place] [phone] Jc Graham MD [address] [place] [address] documented as of this encounter Visit Diagnoses Diagnosis Hypertriglyceridemia Pure hyperglyceridemia Coronary artery disease involving [place] coronary artery of [place] heart without angina pectoris documented in this encounter Care Teams Harvest Worker Relationship Specialty Start Date End Date Tera Foote MD PhD [address] [place] [id number] PCP - General Internal Medicine 10/07/22 Jc Graham MD [address] [place] [address] Primary Insulation Board Back Tender Cardiovascular Disease 10/21/23 documented as of this encounter
--- OUTSIDE RECORDS SUMMARY | 2025-05-17 08:08 | XMS_ITS | Clinical Summary ---
Author Organization [facility] Address [address] [place] [id number] Care Team Providers Care Marketing Lead Name Role Phone Tera Foote MD Primary Care Provider Unavailab le Allergies Active Allergy Reactions Criticality Noted Date Comments Penicillins 10/29/2015 Medications Medication Sig Dispensed Refills Start Date End Date Status fenofibrate (TRIGLIDE) 160 MG tablet Take 1 tablet (160 mg total) by mouth daily. 0 Active escitalopram (LEXAPRO) tablet 10 mg Take 1 tablet (10 mg total) by mouth daily. 0 Active Aspirin Low Dose 81 MG EC tablet TAKE 1 TABLET (81 MG TOTAL) BY MOUTH DAILY. DO NOT START BEFORE SEPTEMBER 22, 2022. 0 09/21/2022 Active losartan (COZAAR) tablet 25 mg TAKE 1 TABLET (25 MG TOTAL) BY MOUTH DAILY. DO NOT START BEFORE SEPTEMBER 22, 2022. 0 09/21/2022 Active metoprolol succinate (TOPROL-XL) 24 hr tablet 25 mg Take 2 tablets (50 mg total) by mouth daily. 0 09/21/2022 Active pravastatin (PRAVACHOL) tablet 20 mg Take 1 tablet (20 mg total) by mouth daily. 0 09/24/2022 Active Brilinta 90 MG TABS tablet Take 1 tablet (90 mg total) by mouth 2 (two) times a day. 0 09/21/2022 Active atorvastatin (LIPITOR) tablet 20 mg Take 1 tablet (20 mg total) by mouth daily. 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 Social History Tobacco Use Types Packs/Day Years Used Date Smoking Tobacco: Every Day Cigarettes 0.3 Smokeless Tobacco: Never Tobacco Cessation:Ready to Q uit: No; Counseling Given: Yes Alcohol Use Standard Drinks/Week Comments Yes 0 (1 standard drink = 0.6 oz pur e alcohol) once a month Sex and Gender Information Value Date Recorded Sex Assigned at Male 11/17/2022 11:04 AM EDT Gender Identity Not on file Sexual Orientation Not on file Job Start Date Occupation Industry Not on file Not on file Not on file Last Filed Vital Signs Vital Sign Reading Time Taken Comments Blood Pressure 127/57 07/14/2023 10:32 AM EST Pulse 56 07/14/2023 10:32 AM EST Temperature 37 C (98.6 F) 07/14/2023 10:32 AM EST Respiratory Rate 16 01/11/2020 11:3 6 AM EDT Oxygen Saturation 98% 07/14/2023 10: 32 AM EST Inhaled Oxygen Concentration - - Weight 104.6 kg (230 lb 9.6 oz) 023 10:32 AM EST Height 179.7 cm (5' 10.75 ) 09/28/2022 3:[address] Body Mass Index 32.39 09/28/2022 3:36 PM EST Plan of Treatment Health Maintenance Due Date Last Done Comments Hepatitis B Vaccines (1 of 3 - 3-dose series) 1970 Hepatitis C Screening 1970 Pneumococcal Vaccine (1 of 2 - PCV) 1976 Depression Screening 1982 Preventative Health Evaluation 1988 Tobacco Cessation Counseling 1988 DTap / Tdap / Td (1 - Tdap) 1989 Colon Cancer Screening (Colonoscopy) 11/27/2015 Shingrix-Zoster Vaccine (1 o f 2) 2020 COVID-19 Vaccine (3 - 2024-2 6 season) 2025 01/18/2021, 12/28/2020 Influenza Vaccine (#1) 2025 RSV Ped < 20 months Aged Out No longe r eligible based on patient's age to complete this topic Advance Directives For more information, please contact: [phone] Documents on File Type Date Recorded 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
--- OUTSIDE RECORDS SUMMARY | 2025-05-17 08:09 | XMS_ITS ---
Author Name [facility] Organization Unknown Results Test Name/Text Value Interpretation Date Range Source TSH SerPl-aCnc 3.35 mIU/L Normal 12/02/2024 0.4 - 4.[address] Cholest SerPl-mCnc 158.0 mg/dL Normal 12/02/2024 - 200 [facility] LDLc SerPl Calc-mCnc 82.0 mg/dL (calc) Normal 12/02/2024 [facility] Trigl SerPl-mCnc 293.0 mg/dL Above high normal 12/02/2024 - 150 [facility] NonHDLc SerPl-mCnc 117.0 mg/dL (calc) Normal 12/02/2024 - 130 [facility] HDLc SerPl-mCnc 41.0 mg/dL Normal 12/02/2024 - QU EST Cholest/HDLc SerPl 3.9 (calc) Normal 12/02/2024 - 5 [facility] TSH SerPl DL<=0.005 mIU/L-aCnc 2.85 mIU/L Normal 08/31/2024 0.27 - 4.2 [facility] Magnesium SerPl-mCnc 2.0 mg/dL Normal 08/31/2024 1.6 - 2. 7 [facility] Sodium SerPl-sCnc 139.0 mmol/L Normal 08/31/2024 136 - 14 5 [facility] Chloride SerPl-sCnc 101.0 mmol/L Normal 08/31/2024 98 - 1 07 [facility] Prot SerPl-mCnc 7.5 g/dL Normal 08/31/2024 6.3 - 8.[address] Potassium SerPl-sCnc 3.7 mmol/L Normal 08/31/2024 3.4 - 5 .3 [facility] Albumin/Glob SerPl 1.6 Ratio Normal 08/31/2024 1 - 3 [facility] GFR/BSA.pred SerPlBld KMX-KNL-UdVNyz >90.0 Normal 08/31/2024 59 - [facility] BUN/Creat SerPl 24.0 Ratio Normal 08/31/2024 10 - 25 HH CCT ALT SerPl-cCnc 42.0 U/L Normal 08/31/2024 10 - 55 [facility] T Calcium SerPl-mCnc 9.9 mg/dL Normal 08/31/2024 8.7 - 10.5 [facility] ALP SerPl-cCnc 43.0 U/L Below low normal 08/31/2024 45 - 12 8 [facility] AST SerPl-cCnc 37.0 U/L Normal 08/31/2024 10 - 55 [facility] T Globulin Ser Calc-mCnc 2.9 g/dL Normal 08/31/2024 1.5 - 3.9 [facility] Albumin SerPl-mCnc 4.6 g/dL Normal 08/31/2024 3.5 - 5 [facility] Glucose SerPl-mCnc 120.0 mg/dL Above high normal 08/31/2024 65 - 99 [facility] Bilirub SerPl-mCnc 0.4 mg/dL Normal 08/31/2024 0.2 - 1 [facility] Creat SerPl-mCnc 0.9 mg/dL Normal 08/31/2024 0.5 - 1.3 HH CCT Anion Gap Bld-sCnc 15.0 Normal 08/31/2024 7 - 17 [facility] BUN SerPl-mCnc 22.0 mg/dL Above high normal 08/31/2024 8 - 2 1 [facility] CO2 SerPl-sCnc 23.0 mmol/L Normal 08/31/2024 22 - 33 HH CCT RDW RBC Auto-Rto 11.9 % Normal 08/31/2024 11.5 - 14.5 [facility] Neutrophils/leuk NFr Bld Auto 64.6 % Normal 08/31/2024 [facility] RBC num Bld Auto 4.53 Mil/uL Normal 08/31/2024 4.5 - 6.2 [facility] Hgb Bld-mCnc 15.0 g/dL Normal 08/31/2024 13 - 17.7 [facility] MCV RBC Auto 91.0 fL Normal 08/31/2024 80 - 100 [facility] PMV Bld Auto 9.5 fL Normal 08/31/2024 7.5 - 12.5 [facility]CT MCHC RBC Auto-mCnc 36.5 g/dL Above high normal 08/31/2024 30 - 36 [facility] Monocytes/leuk NFr Bld Auto 10.7 % Normal 08/31/2024 [facility] Neutrophils num Bld Auto 4.78 Thou/uL Normal 08/31/2024 2 - 7.5 [facility] Eosinophil num Bld Auto 0.24 Thou/uL Normal 08/31/2024 0 - 0.7 [facility] Basophils num Bld Auto 0.05 Thou/uL Normal 08/31/2024 0 - 0.2 [facility] Imm Granulocytes num Bld Auto 0.02 Thou/uL Normal 08/31/2024 0 - 0.1 [facility] Lymphocytes/leuk NFr Bld Auto 20.5 % Normal 08/31/2024 [facility] WBC num Bld Auto 7.4 Thou/uL Normal 08/31/2024 4 - 11 [facility] Imm Granulocytes/leuk NFr Bld Auto 0.3 % Normal 08/31/2024 [facility] Hct VFr Bld Auto 41.1 % Normal 08/31/2024 39 - 54 HH CCT Lymphocytes num Bld Auto 1.52 Thou/uL Normal 08/31/2024 1.5 - 4.5 [facility] Basophils/leuk NFr Bld Auto 0.7 % Normal 08/31/2024 [facility] MCH RBC Qn Auto 33.1 pg Above high normal 08/31/2024 27 - 31 [facility] Platelet num Bld Auto 190.0 Thou/uL Normal 08/31/2024 150 - 450 [facility] Eosinophil/leuk NFr Bld Auto 3.2 % Normal 08/31/2024 [facility] Monocytes num Bld Auto 0.79 Thou/uL Normal 08/31/2024 0.2 - 1.5 [facility] History of Medication Use Medication Directions Dispensed Refills Start Date End Date Stat metoPROLOL SUCCINATE (TOPROL-XL) 25 MG 24 hr tablet Take 0.5 tablets (12.5 mg total) by mouth nightly. 06/05/2024 active ezetimibe (ZeTIA) 10 MG tablet Take 1 tablet (10 mg total) by mouth daily. 05/27/2023 03/06/2024 active metoPROLOL SUCCINATE (TOPROL-XL) 50 MG 24 hr tablet Take 1 tablet (50 mg total) by mouth nightly. 12/07/2022 01/22/2023 aborted atorvastatin (LIPITOR) 10 MG tablet Take 1 tablet (10 mg total) by mouth daily. 10/07/2022 10/07/2022 active metoPROLOL SUCCINATE (TOPROL-XL) 25 MG 24 hr tablet Take 1 tablet (25 mg total) by mouth nightly. 09/22/2022 12/07/2022 active Brilinta completed Plavix completed rosuvastatin completed Abena Low Dose Aspirin completed metoprolol succinate completed fenofibrate completed ezetimibe completed Lexapro completed escitalopram (LEXAPRO) 10 MG tablet Take 1 tablet (10 mg total) by mouth. active Allergies Allergen Reaction Severity Comment Documented Date Source Statu s PENICILLINS HIVES CT_[facility] Problems Problem Status Onset Date Problem Type Date of Resoluti on Source Cardiac arrest active 2023-01-[address] Ex-smoker active 2023-01-22 ProblemAct [facility] Other hemochromatosis active 2023-04-07 ProblemAct [facility] White coat syndrome with diagnosis of hypertension active 2024-11-17 ProblemAct HH CCT Old myocardial infarct active 2022-09-16 ProblemAct [facility] Mixed hyperlipidemia active 2023-01-22 ProblemAct [facility] PVC (premature ventricular contraction) active 2023-04-07 ProblemAct [facility] Coronary arteriosclerosis active 2023-01-22 ProblemAct [facility] Encounters Encounter Type Encounter Reason Primary Diagnosis Location Date Ambulatory [facility] 05/14/2025 Ambulatory [facility] 04/25/2025 Ambulatory [facility] 03/16/2025 Ambulatory [facility] 01/31/2025 Ambulatory [facility] 12/04/2024 Ambulatory Cardiac arrest, caus e unspecified Cardiac arrest, cause unspecified [facility] 11/17/2024 Emergency Palpitations Palpitations [facility] 08/31/2024 Ambulatory Atherosclerotic hear t disease of [place] coronary artery without angina pectoris Atherosclerotic heart disease of [place] coronary artery without angina pectoris [facility] 11/09/2023 Ambulatory Mixed hyperlipidemia Mixed hyperlipidemia [facility] 04/08/2023 Ambulatory Cardiac arrest, cause unspecified [facility] 01/22/2023 Emergency Palpitations [facility] 12/07/[address] elevation (ST MACIEL) myocardial infarction involving left circumflex coronary artery [facility] 10/07/2022 Inpatient Cardiac arrest, caus e unspecified Cardiac arrest, cause unspecified [facility] 09/16/2022 Care Team Organization Name Specialty Phone Email Start Date End Da te [facility] PADMINI Information Architect 2024 [facility] Information [facility] 11/23/2024 01/06/2025 [facility] 11/21/2024 [facility] GRIFFIN [facility] 12/07/2022 5 [facility] 10/07/2022 01/06/2025 [facility] griffin [facility] 10/07/2022 3 [facility] 09/16/2022 09/16/2022
--- OUTSIDE RECORDS SUMMARY | 2025-05-17 08:09 | XMS_ITS | Encounter Summary ---
Author Organization [facility] Address [address] [place] [address] Care Team Providers Care Vegetable Farmworker Name Role Phone Tera Foote MD PhD Primary Care Provider + [phone] Jc Graham MD Unavailable [phone] Encounter Details Date Type Department Care Team (Late st Contact Info) Description 10/12/2022 Scanned Document [facility] Cardiology [address] [place] [phone] Cardiology, Scan Social History Tobacco Use Types Packs/Day Years [...] Recorded In the last 10 days, have yo u been in contact with someone who was confirmed or suspected to have Coronavirus/COVID-19? No / Unsure 10/07/2022 12:42 PM EST documented as of this encounter Plan of Treatment Upcoming Encounters Date Type Department Care Team (Late st Contact Info) Description 09/06/2025 9:15 AM EST Office Visit [facility] Cardiology [place] [address] [facility] [address] [place] [phone] Jc Graham MD [address] [place] [address] documented as of this encounter Visit Diagnoses Not on filedocumented in this encounter Care Teams Vegetable Farmworker Relationship Specialty Start Date End Date Tera Foote MD PhD [address] [place] [address] PCP - General Internal Medicine 10/07/22 Jc Graham MD [address] [place] [address] Primary Transportation Services Representative Cardiovascular Disease 10/21/23 documented as of this encounter
--- OUTSIDE RECORDS SUMMARY | 2025-05-17 08:09 | XMS_ITS | Encounter Summary ---
Author Organization [facility] Address [address] [place] [address] Care Team Providers Care Lubrication Servicer Name Role Phone Tera Foote MD PhD Primary Care Provider + [phone] Jc Graham MD Unavailable [phone] Encounter Details Date Type Department Care Team (Late st Contact Info) Description 12/04/2024 Scanned Document [facility] Pulmonary [place] [address] [place] [address] Unknown Unknow Provider Address Social History Tobacco Use Types Packs/Day Years Used Date Smoking Tobacco: Never Smokeless Tobacco: Never Alcohol Use Standard Drinks/Week Comments Not Currently 0 (1 standard drink = 0.6 oz pur e alcohol) AUDIT-C Answer Date Recorded Q1: How often do you have a drink containing alc ohol? Monthly or less 09/18/2022 Q2: How many drinks containi ng alcohol do you have on a typical day when you are drinking? 1 or 2 09/18/2022 Q3: How often do you have si x or more drinks on one occasion? Never 09/18/2022 Physical Activity Answer Date Recorded On average, how many days pe r week do you engage in moderate to strenuous exercise (like a brisk walk)? 7 days 11/17/2024 On average, how many minutes do you exercise per day at this level? 30 min 11/17/2024 Sex and Gender Information Value Date Recorded Sex Assigned at Male 09/16/2022 2:00 PM EST Legal Sex Male 1:04 PM EST Gender Identity Male 09/16/2022 2:00 PM EST Sexual Orientation Heterosexual (straight) 09/16 2:00 PM EST documented as of this encounter Plan of Treatment Upcoming Encounters Date Type Department Care Team (Late st Contact Info) Description 09/06/2025 9:15 AM EST [facility] [place] [address] [facility] [address] [place] [address] Jc Graham MD [address] [place] [address] documented as of this encounter Visit Diagnoses Not on filedocumented in this encounter Care Teams Lubrication Servicer Relationship Specialty Start Date End Date Tera Foote MD PhD [address] [place] [address] PCP - General Internal Medicine 10/07/22 Jc Graham MD [address] [place] [address] Primary Administrative Support Manager Cardiovascular Disease 10/21/23 documented as of this encounter
--- OUTSIDE RECORDS SUMMARY | 2025-05-17 08:09 | XMS_ITS | Encounter Summary ---
Author Organization [facility] Address [address] [place] [address] Care Team Providers Care Office Services Coordinator Name Role Phone Tera Foote MD PhD Primary Care Provider + [phone] Jc Graham MD Unavailable [phone] Encounter Details Date Type Department Care Team (Late st Contact Info) Description 10/02/2022 Scanned Document [facility] CARDIOLOGY SCAN Cardiology, Scan Social History Tobacco Use Types [...] suspected to have Coronavirus/COVID-19? No / Unsure 09/16/2022 2:13 PM EST documented as of this encounter Plan of Treatment Upcoming Encounters Date Type Department Care Team (Late st Contact Info) Description 09/06/2025 9:15 AM EST Office Visit [facility] Cardiology [address] [place] [address] Jc Graham MD [address] [place] [address] documented as of this encounter Visit Diagnoses Not on filedocumented in this encounter Care Teams Office Services Coordinator Relationship Specialty Start Date End Date Tera Foote MD PhD [address] [place] [address] PCP - General Internal Medicine 10/07/22 Jc Graham MD [address] [place] [address] Primary Plating Engineer Cardiovascular Disease 10/21/23 documented as of this encounter
--- OUTSIDE RECORDS SUMMARY | 2025-05-17 08:09 | XMS_ITS | Encounter Summary ---
Author Organization [facility] Address [address] [place] [address] Care Team Providers Care Assembly Manager Name Role Phone Tera Foote MD PhD Primary Care Provider + [phone] Jc Graham MD Unavailable [phone] Encounter Details Date Type Department Care Team (Late st Contact Info) Description 10/02/[address] [facility] CARDIOLOGY SCAN Cardiology, Scan Social History Tobacco [...] Description 09/06/2025 9:15 AM EST Office Visit [facility] Cardiology [address] [place] [address] Jc Graham MD [address] [place] [address] documented as of this encounter Visit Diagnoses Not on filedocumented in this encounter Care Teams Assembly Manager Relationship Specialty Start Date End Date Tera Foote MD PhD [address] [place] [address] PCP - General Internal Medicine 10/07/22 Jc Graham MD [address] [place] [address] Primary Thinner Sprayer Cardiovascular Disease 10/21/23 documented as of this encounter
--- OUTSIDE RECORDS SUMMARY | 2025-05-17 08:09 | XMS_ITS | Clinical Summary ---
Author Organization [facility] Address [address] [place] [address] Care Team Providers Care Sand Tester Name Role Phone Tera Foote MD PhD Primary Care Provider + [phone] Jc Graham MD Unavailable [phone] Allergies Active Allergy Reactions Criticality Noted Date Comments Penicillins Hives Medium 10/29/2015 Medications escitalopram (LEXAPRO) 10 MG tablet Take 1 tablet (10 mg total) by mouth. Active aspirin enteric coated (ECOTRIN LOW STRENGTH) 81 MG EC tabletIndications:ST MACIEL (ST elevation myocardial infarction) (HCC) Take 1 tablet (81 mg total) by mouth daily. Do not start before September 22, 2022. 30 tablet 5 3 Active ezetimibe (ZeTIA) 10 MG tabletIndications:Mi xed hyperlipidemia Take 1 tablet (10 mg total) by mouth daily. 90 tablet 3 4 Active metoPROLOL SUCCINATE (TOPROL-XL) 25 MG 24 hr tabletIndications:ST elevation myocardial infarction involving left circumflex coronary artery (HCC),Hypertriglycer idemia,STEMI (ST elevation myocardial infarction) (HCC),Coronary artery disease involving [place] coronary artery of [place] heart without angina pectoris Take 0.5 tablets (12.5 mg total) by mouth nightly. 45 tablet 3 4 Active fenofibrate (TRIGLIDE) 160 MG tabletIndications:ST elevation myocardial infarction involving left circumflex coronary artery (HCC),Hypertriglycer idemia,STEMI (ST elevation myocardial infarction) (HCC),Coronary artery disease involving [place] coronary artery of [place] heart without angina pectoris TAKE 1 TABLET BY MOUTH EVERY DAY 90 tablet 3 5 Active clopidogrel (PLAVIX) 75 MG tabletIndications:Co ronary arteriosclerosis TAKE 1 TABLET BY MOUTH EVERY DAY 90 tablet 3 5 Active rosuvastatin (CRESTOR) 10 MG tabletIndications:Mi xed hyperlipidemia TAKE 1 TABLET BY MOUTH EVERY DAY 90 tablet 3 5 Active Active Problems Problem Noted Date Diagnosed Date White coat syndrome with diagnosis of hypertensi on 11/17/2024 Other hemochromatosis 04/07/2023 PVC (premature ventricular contraction) 04/07/20 Cardiac arrest 01/22/2023 Mixed hyperlipidemia 01/22/2023 Ex-smoker 01/22/2023 Coronary arteriosclerosis 01/22/2023 Old myocardial infarct 09/16/2022 Social History Tobacco Use Types Packs/Day Years Used Date Smoking Tobacco: Never Smokeless Tobacco: Never Tobacco Cessation:Counseling Given: Not Answered Alcohol Use Standard Drinks/Week Comments Not Currently [...] Orientation Heterosexual (straight) 09/16 2:00 PM EST Last Filed Vital Signs Vital Sign Reading Time Taken Comments Blood Pressure 140/84 11/17/2024 1:48 PM EDT Pulse 69 11/17/2024 1:48 PM EDT Temperature 36.8 C (98.2 F) 08/31/2024 3:00 PM EST Respiratory Rate 18 08/31/2024 5:06 PM EST Oxygen Saturation 95% 11/17/2024 1:48 PM EDT Inhaled Oxygen Concentration - - Weight 102 kg (223 lb 15.8 oz) 12/04/2024 7:49 A M EDT Height 180.3 cm (5' 10.98 ) 12/04/2024 7:49 AM E DT Body Mass Index 31.25 12/04/2024 7:49 AM EDT Plan of Treatment Upcoming Encounters Date Type Department Care Team (Late st Contact Info) Description 09/06/2025 9:15 AM EST Office Visit [facility] Cardiology [place] [address] [facility] [address] [place] [phone] Jc Graham MD [address] [place] [address] [place] [address] Health Maintenance Due Date Last Done Comments Hepatitis C Virus Screening 1970 HIV Screening 11/27/1983 DTaP/Tdap/Td Vaccines (1 - Tdap) 1989 Hepatitis B Vaccines (1 of 3 - 19+ 3-dose series) 1989 Pneumococcal Vaccines 50+ (1 of 2 - PCV) 1989 Colonoscopy 11/27/2015 Zoster (Shingles) Vaccine (1 of 2) 2020 Influenza Vaccine 03/30/2025 COVID-19 Vaccine (3 - season) 2025, 12/28/2020 Medical Devices Implanted Type Area Pulling Machine Operator Device Identifier Shelf Expiration Date Model / Serial / Lot [id number] Coronary Stent System Synergy Xd Mr 3mm 32mm Delivery Sys 1 - [id number] Implanted:Qty: 1 on 09/16/2022 by Edgar Ventura MD at [employer] [id number] 07/28/2023 [id number] / / [id number] Description:[place] [id number] [facility] Advance Directives * Full Code (Latest Code Status on File) Date Activated Date Inactivated Comments 09/16/2022 4:27 PM 12/07/2022 11:17 AM Healthcare Agents on File Name Relationship Healthcare Agent Relationshi p Communication CHRISTOPHE Arriaga Spouse 4. Next of Kin ( Spouse, Adult Child, Parent, Adult Sibling, Grandparent) Care Teams Sand Tester Relationship Specialty Start Date End Date Tera Foote MD PhD [address] [place] [address] PCP - General Internal Medicine 10/07/22 Jc Graham MD [address] [facility] [address] [place] [address] Primary Executive Assistant To President Cardiovascular Disease 10/21/23
--- OUTSIDE RECORDS SUMMARY | 2025-05-17 08:09 | XMS_ITS | Encounter Summary ---
Author Organization [facility] Address [address] [place] [address] Care Team Providers Care Lip Cutter Name Role Phone Tera Foote MD PhD Primary Care Provider + [phone] Jc Graham MD Unavailable [phone] Encounter Details Date Type Department Care Team (Late st Contact Info) Description 12/04/2024 Scanned Document [facility] Pulmonary [place] [address] [place] [address] Unknown Unknow Provider Address Social History Tobacco [...] Description 09/06/2025 9:15 AM EST Office Visit [facility] Cardiology [place] [address] [facility] [address] [place] [address] Jc Graham MD [address] [place] [address] documented as of this encounter Visit Diagnoses Not on filedocumented in this encounter Care Teams Lip Cutter Relationship Specialty Start Date End Date Tera Foote MD PhD [address] [place] [address] PCP - General Internal Medicine 10/07/22 Jc Graham MD [address] [place] [address] Primary Lap Cutter Cardiovascular Disease 10/21/23 documented as of this encounter
[2025-05-17 08:13] VITALS: BP 111/58; PULSE 50; O2SAT 95; BMI 31.5
== END 2025-05-17 08:46 | disposition home or self-care (01) ==
LOC: HO.HGI 08:02
PROVIDERS: PCP Internal Medicine; Visit Provider Nurse Practitioner Family
DX: Z01.818 Encounter for other preprocedural examination (principal); Z12.11 Encounter for screening for malignant neoplasm of colon
CPT/HCPCS: 99203

== ENCOUNTER 2025-06-08 10:01 | Day surgery (SDC) | payer OTHER, SELFPAY ==
--- OUTSIDE RECORDS SUMMARY | 2025-05-21 12:15 | XMS_ITS | Clinical Summary ---
Author Organization [facility] Address [address] [place] [address] Care Team Providers Care Erp Technical Lead Name Role Phone Tera Foote MD PhD Primary Care Provider + [phone] Jc Graham MD Unavailable [phone] Allergies Active Allergy Reactions Criticality Noted [...] elevation myocardial infarction) (HCC),Coronary artery disease involving [place] coronary artery of [place] heart without angina pectoris Take 0.5 tablets (12.5 mg total) by mouth nightly. 45 tablet 3 4 Active fenofibrate (TRIGLIDE) 160 MG tabletIndications:ST elevation myocardial infarction involving left circumflex coronary artery (HCC),Hypertriglycer idemia,STEMI (ST elevation myocardial infarction) (HCC),Coronary artery disease involving [place] coronary artery of [place] heart without angina pectoris TAKE 1 TABLET [...] Description 09/06/2025 9:15 AM EST Office Visit [facility] Cardiology [place] [address] [facility] [address] [place] [phone] Jc Graham MD [address] [place] [address] Health Maintenance Due Date Last Done Comments [...] 2025, 12/28/2020 Medical Devices Implanted Type Area Parking Officer Device Identifier Shelf Expiration Date Model / Serial / Lot [id number] Coronary Stent System Synergy Xd Mr 3mm 32mm Delivery Sys 1 - [id number] Implanted:Qty: 1 on 09/16/2022 by Edgar Ventura MD at [facility] [employer] [id number] 07/28/2023 [id number] / / [id number] Description:[place] [id number] [facility] Advance Directives * Full Code (Latest Code Status on File) Date Activated Date Inactivated Comments 09/16/2022 4:27 PM 12/07/2022 11:17 AM Healthcare Agents on File Name Relationship Healthcare Agent Relationshi p Communication CHRISTOPHE Arriaga Spouse 4. Next of Kin ( Spouse, Adult Child, Parent, Adult Sibling, Grandparent) Care Teams Erp Technical Lead Relationship Specialty Start Date End Date Tera Foote MD PhD [address] [place] [address] PCP - General Internal Medicine 10/07/22 Jc Graham MD [address] [place] [facility] [address] [place] [address] Primary Assembler Latches And Springs Cardiovascular Disease 10/21/23
--- OUTSIDE RECORDS SUMMARY | 2025-05-21 12:15 | XMS_ITS | Encounter Summary ---
Author Organization [facility] Address [address] [place] [address] Care Team Providers Care Astronautical Engineer Name Role Phone Tera Foote MD PhD Primary Care Provider + [phone] Jc Graham MD Unavailable [phone] Encounter Details Date Type Department Care Team (Late st Contact Info) Description 12/04/2024 Scanned Document [facility] Pulmonary [place] [address] [place] [address] Unknown Unknow Provider Address Social History Tobacco [...] Description 09/06/2025 9:15 AM EST Office Visit [facility] Cardiology [place] [address] [facility] [address] [place] [address] Jc Graham MD [address] [place] [address] documented as of this encounter Visit Diagnoses Not on filedocumented in this encounter Care Teams Astronautical Engineer Relationship Specialty Start Date End Date Tera Foote MD PhD [address] [place] [address] PCP - General Internal Medicine 10/07/22 Jc Graham MD [address] [place] [address] Primary Screen Operator Cardiovascular Disease 10/21/23 documented as of this encounter
--- OUTSIDE RECORDS SUMMARY | 2025-05-21 12:15 | XMS_ITS | Encounter Summary ---
Author Organization [facility] Address [address] [place] [address] Care Team Providers Care Moving Picture Producer Name Role Phone Tera Foote MD PhD Primary Care Provider + [phone] Jc Graham MD Unavailable [phone] Encounter Details Date Type Department Care Team (Late st Contact Info) Description 12/04/2024 Scanned Document [facility] Pulmonary [place] [address] [place] [address] Unknown Unknow Provider Address Social History Tobacco [...] Description 09/06/2025 9:15 AM EST Office Visit [facility] Cardiology [place] [address] [facility] [address] [place] [address] Jc Graham MD [address] [place] [address] documented as of this encounter Visit Diagnoses Not on filedocumented in this encounter Care Teams Moving Picture Producer Relationship Specialty Start Date End Date Tera Foote MD PhD [address] [place] [address] PCP - General Internal Medicine 10/07/22 Jc Graham MD [address] [place] [address] Primary Mortgage Operations Manager Cardiovascular Disease 10/21/23 documented as of this encounter
--- OUTSIDE RECORDS SUMMARY | 2025-05-21 12:15 | XMS_ITS | Patient Health Record ---
Author Organization [facility] Address [address] [place] [address] Care Team Providers Care Paint Stock Clerk Name Role Phone MERI GANN Primary Care Provider Issa Germain Unavailable [phone] Allergies Allergen (clinical drug ingredient) Drug/Non Drug Allergy documented on EMR Reaction Allergy Type Onset Date Status penicillamine penicillAMINE Unknown Drug Allergy Active Results Component Value Reference Range Notes Albumin/Creatinine Ratio,Uri [id number] Reviewed date:12/22/2024 07:29:03 AM Interpretation: Performing Lab:[facility], [address], Phone - [phone], Director - MDJodry Notes/Report: Creatinine, Urine 28.9 Not Estab. mg/dL Albumin, Urine <3.0 Not Estab. ug/mL Alb/Creat Ratio <10 0-29 mg/g creat Normal: 0 - 29 Moderately increased: 30 - 300 Severely increased: >300 Comp. Metabolic Panel ([id number] Reviewed date:12/22/2024 07:28:59 AM Interpretation: Performing Lab:[facility], [address], Phone - [phone], Director - MDJodry Notes/Report: Glucose 96 70-99 mg/dL BUN 22 [...] 0-40 IU/L ALT (SGPT) 36 0-44 IU/L Lipid Panel-[id number] Reviewed date:12/22/2024 07:28:56 AM Interpretation: Performing Lab:[facility] [place], [address] [place] [address], Phone - [phone], Director - MDJodry Notes/Report: Cholesterol, Total 130 100-199 mg/dL Triglycerides 179 0-149 mg/dL HDL Cholesterol 36 >39 mg/dL VLDL Cholesterol Neri 30 5-40 mg/dL LDL Chol Calc (NIH) 64 0-99 mg/dL Hemoglobin [id number] Reviewed date:12/22/2024 07:28:53 AM Interpretation: Performing Lab:[facility] [place], [address] [place] [address], [place], Phone - [phone], Director - MDAishay Notes/Report: Hemoglobin A1c 5.4 4.8-5.6 % . Prediabetes: 5.7 - 6.4 Diabetes: >6.4 Glycemic control for adults with diabetes: <7.0 PSA (Serial Monitor)-[id number] Reviewed date:12/22/2024 07:28:51 AM Interpretation: Performing Lab:[facility], [address] [place] [address], Phone - [phone], Director - Cristidry Notes/Report: Prostate Specific Ag 0.2 0.0-4.0 ng/mL Davy ECLIA methodology. . According to the [place] [employer], Serum PSA should decrease and [...] the presence or absence of malignant disease. Reason For Referral Reason Evaluation and manag ement - colonoscopy Diagnosis 1 Encounter for screen ing for malignant neoplasm of colon (Z12.11) Referral Organization [facility] Referring Provider First Name MERI Referring Provider Last Name LEE ANN Referring Provider Speciality Internal M edicine Referred Provider Specialty Gastroentero logy General Notes Referral sent to [facility] ([address] [address] ) - Office will call patient for scheduling., Svetlana Connor 06/28/2024 10:46:23 AM > Referral Priority Routine Reason screening Please e valuate and treat Diagnosis 1 Encounter for screen ing for other digestive system disorders (Z13.818) Referral Organization [facility] Referring Provider First Name MERI Referring Provider Last Name [facility] Referring Provider Speciality Internal edicine Referred Provider Specialty Gastroentero logy General Notes Please call the betzy ent to schedule the appointment, Erica Mcpherson 11/28/2024 03:11:32 PM > Referral Priority Routine Reason Screening- [facility] [place] Please evaluate and treat Diagnosis 1 Encounter for screen ing for malignant neoplasm of skin (Z12.83) Referral Organization [facility] Referring Provider First Name MERI Referring Provider Last Name LEE ANN Referring Provider Speciality Internal edicine Referred Provider [...] W/U Status Risk Notes Problem Mixed hyperlipidemia (151896735) Mixed hyperlipidemia (E78.2) Active confirmed Problem Generalized anxiety disorder (13929649) Generalized anxiety disorder (F41.1) Active confirmed Problem Essential hypertension (27397376) Essential (primary) hypertension (I10) Active confirmed Problem Amnesia (74951672) Complaints of memory disturbance (R41.3) Active confirmed Problem Atherosclerotic heart disease of [place] coronary artery without angina pectoris (832347505685625) Coronary artery disease involving [place] coronary artery of [place] heart without angina pectoris (I25.10) Active confirmed Problem Male hypogonadism (56276252) Hypogonadism in male (E29.1) Active confirmed Vital Signs Heart Rate 60 /min 11/13/2024 Temperature 97.0 degrees Fahrenheit 11/13/2024 Blood pressure diastolic 79 mm Hg 11/13/2024 Oximetry 96 % 11/13/2024 Height 5'11'' in 11/13/2024 Blood pressure systolic 120 mm Hg 11/13/2024 Weight 229.7 lbs 11/13/2024 BMI 32.03 kg/m2 11/13/2024 Encounters Encounter Location Date Provider Diagnosis [address] [place] [address] 06/21/2024 MERI GANN Coronary artery dise ase involving [place] coronary artery of [place] heart without angina pectoris I25.10 ; Essential (primary) hypertension I10 ; Mixed hyperlipidemia E78.2 ; Personal history of nicotine dependence Z87.891 ; Complaints of memory disturbance R41.3 ; Impaired fasting glucose R73.01 ; Hypogonadism in male E29.1 ; Generalized anxiety disorder F41.1 and Encounter for screening for malignant neoplasm of prostate Z12.[address] [place] [address] 11/13/2024 MERI GANN Coronary artery dise ase involving [place] coronary artery of [place] heart without angina pectoris I25.10 ; Annual physical exam Z00.00 ; Essential (primary) hypertension I10 ; Mixed hyperlipidemia E78.2 ; Personal history of nicotine dependence Z87.891 ; Complaints of memory disturbance R41.3 ; Impaired fasting glucose R73.01 ; Hypogonadism in male E29.1 ; Generalized anxiety disorder F41.1 and Encounter for screening for malignant neoplasm of prostate Z12.[address] [place] [address] 06/28/2024 MERI GANN Assessments Encounter Date Diagnosis [...] a month. Eye screening. He sees his snorkelling instructor regularly. Dental screening. He sees dentist regularly. Colon cancer screening. Referred to GI for colonoscopy. Immunizations. He is up-to-date on his COVID-19 vaccinations. Screening blood work before next appointment. General health concerns discussed with patient. Scribe services used to formulate this note under HIPAA compliance and under [place] law mandated for scribe services. Patient aware of service. Verbal consent and written consent taken from the patient. Patient understands and verbalizes understanding of the scribes services and all questions answered regarding scribes services. Patient agrees to use of scribes services. 06/21/2024 Coronary artery disease involving [place] coronary artery of [place] heart without angina pectoris (ICD-10 - I25.10) [...] a month. Eye screening. He sees his snorkelling instructor regularly. Dental screening. He sees dentist regularly. Colon cancer screening. Referred to GI for colonoscopy. Immunizations. He is up-to-date on his COVID-19 vaccinations. Screening blood work before next appointment. General health concerns discussed with patient. Scribe services used to formulate this note under HIPAA compliance and under [place] law mandated for scribe services. Patient aware [...] a month. Eye screening. He sees his snorkelling instructor regularly. Dental screening. He sees dentist regularly. Colon cancer screening. Referred to GI for colonoscopy. Immunizations. He is up-to-date on his COVID-19 vaccinations. Screening blood work before next appointment. General health concerns discussed with patient. 11/13/2024 Coronary artery disease involving [place] coronary artery of [place] heart without angina pectoris (ICD-10 - I25.10) [...] a month. Eye screening. He sees his snorkelling instructor regularly. Dental screening. He sees dentist regularly. [...] a month. Eye screening. He sees his snorkelling instructor regularly. Dental screening. He sees dentist regularly. Colon cancer screening. Referred to GI for colonoscopy. Immunizations. He is up-to-date on his COVID-19 vaccinations. Screening blood work before next appointment. General health concerns discussed with patient. Scribe services used to formulate this note under HIPAA compliance and under [place] law mandated for scribe services. Patient aware [...] a month. Eye screening. He sees his snorkelling instructor regularly. Dental screening. He sees dentist regularly. [...] a month. Eye screening. He sees his snorkelling instructor regularly. Dental screening. He sees dentist regularly. Colon cancer screening. Referred to GI for colonoscopy. Immunizations. He is up-to-date on his COVID-19 vaccinations. Screening blood work before next appointment. General health concerns discussed with patient. Scribe services used to formulate this note under HIPAA compliance and under [place] law mandated for scribe services. Patient aware [...] a month. Eye screening. He sees his snorkelling instructor regularly. Dental screening. He sees dentist regularly. [...] a month. Eye screening. He sees his snorkelling instructor regularly. Dental screening. He sees dentist regularly. [...] a month. Eye screening. He sees his snorkelling instructor regularly. Dental screening. He sees dentist regularly. Colon cancer screening. Referred to GI for colonoscopy. Immunizations. He is up-to-date on his COVID-19 vaccinations. Screening blood work before next appointment. General health concerns discussed with patient. Scribe services used to formulate this note under HIPAA compliance and under [place] law mandated for scribe services. Patient aware [...] a month. Eye screening. He sees his snorkelling instructor regularly. Dental screening. He sees dentist regularly. Colon cancer screening. Referred to GI for colonoscopy. Immunizations. He is up-to-date on his COVID-19 vaccinations. Screening blood work before next appointment. General health concerns discussed with patient. Scribe services used to formulate this note under HIPAA compliance and under [place] law mandated for scribe services. Patient aware [...] a month. Eye screening. He sees his snorkelling instructor regularly. Dental screening. He sees dentist regularly. [...] a month. Eye screening. He sees his snorkelling instructor regularly. Dental screening. He sees dentist regularly. [...] a month. Eye screening. He sees his snorkelling instructor regularly. Dental screening. He sees dentist regularly. Colon cancer screening. Referred to GI for colonoscopy. Immunizations. He is up-to-date on his COVID-19 vaccinations. Screening blood work before next appointment. General health concerns discussed with patient. Scribe services used to formulate this note under HIPAA compliance and under [place] law mandated for scribe services. Patient aware [...] a month. Eye screening. He sees his snorkelling instructor regularly. Dental screening. He sees dentist regularly. Colon cancer screening. Referred to GI for colonoscopy. Immunizations. He is up-to-date on his COVID-19 vaccinations. Screening blood work before next appointment. General health concerns discussed with patient. Scribe services used to formulate this note under HIPAA compliance and under [place] law mandated for scribe services. Patient aware [...] a month. Eye screening. He sees his snorkelling instructor regularly. Dental screening. He sees dentist regularly. [...] a month. Eye screening. He sees his snorkelling instructor regularly. Dental screening. He sees dentist regularly. [...] a month. Eye screening. He sees his snorkelling instructor regularly. Dental screening. He sees dentist regularly. [...] a month. Eye screening. He sees his snorkelling instructor regularly. Dental screening. He sees dentist regularly. Colon cancer screening. Referred to GI for colonoscopy. Immunizations. He is up-to-date on his COVID-19 vaccinations. Screening blood work before next appointment. General health concerns discussed with patient. Scribe services used to formulate this note under HIPAA compliance and under [place] law mandated for scribe services. Patient aware of service. Verbal consent and written consent taken from the patient. Patient understands and verbalizes understanding of the scribes services and all questions answered regarding scribes services. Patient agrees to use of scribes services. Plan Of Treatment Next Appt Details Provider Name:Issa Carbajalgregory, 0 05/21/2025 01:45:00 PM, [address] [place] [address], [phone], Insurance Providers Payer Name Payer Address Payer Phone Subscriber Number Group Number Insured Name Patient Relationship to Insured Coverage Start Date Coverage End Date [facility] [address] [place] [phone] [id number] Johnny Arriaga Self - patient is the insured Medical (General) History Medical History History ICD Code hypertension hyperlipidemia CAD and s/p stent Circumflex artery and see Dr Graham [facility] PADMA hypogonadism Surgical History Surgery Date(Month/Year) stent placement
--- OUTSIDE RECORDS SUMMARY | 2025-05-21 12:15 | XMS_ITS | Clinical Summary ---
Author Organization [facility] Address [address] [place] [address] Phone Care Team Providers Care Retail Merchandiser Name Role Phone Tera Foote MD Primary Care Provider [phone] Allergies Active Allergy Reactions Criticality Noted Date Comments Penicillins 10/29/2015 Medications aspirin 81 mg EC tablet TAKE 1 TABLET (81 MG TOTAL) BY MOUTH DAILY. DO NOT START BEFORE SEPTEMBER 22, 2022. 09/21/2022 Active atorvastatin (LIPITOR) 20 mg tablet Take 1 tablet (20 mg total) by mouth 1 (one) time each day. Active ticagrelor (Brilinta) 90 mg tablet Take 1 tablet (90 mg total) by mouth 2 (two) times a day. 09/21/2022 Active escitalopram (LEXAPRO) 10 mg tablet Take 1 tablet (10 mg total) by mouth 1 (one) time each day. Active fenofibrate (LOFIBRA) 160 mg tablet Take 1 tablet (160 mg total) by mouth daily. Active losartan (COZAAR) 25 mg tablet TAKE 1 TABLET (25 MG TOTAL) BY MOUTH DAILY. DO NOT START BEFORE SEPTEMBER 22, 2022. 09/21/2022 Active metoprolol succinate (TOPROL-XL) 25 mg 24 hr tablet Take 2 tablets (50 mg total) by mouth daily. 09/21/2022 Active pravastatin (PRAVACHOL) 20 mg tablet Take 1 tablet (20 mg total) by mouth 1 (one) time each day. 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 ([facility]/HCC V24, [facility] V28) 09/28/2022 Hemochromatosis 05/14/2016 Immunizations Name Administration Dates Next Due Pfizer SARS-CoV-2 COVID-19, mRNA, LNP-S, preservative free 01/18/2021,12/28/2020 Surgical History Surgery Date Site/Laterality Comments TONSILLECTOMY PROCEDURE: HISTORICAL TONSILLECTOMY Medical History Medical History Date Comments Anxiety with depression DX:Anxie ty with depression Dyslipidemia DX:Dyslipidemia Hereditary hemochromatosis ([facility] V24) DX:Hereditary hemochromatosis (HCC) Coronary artery disease DX:Coron sean artery disease Family History Medical History Relation Name Comments Hyperlipidemia Father Other: hemachromatosis Father Relation Name Status Comments Father Social History Tobacco Use Types Packs/Day Years Used Date Smoking Tobacco: Former Smokeless Tobacco: Never Alcohol Use Standard Drinks/Week Comments Yes 0 (1 standard drink = 0.6 oz pur e alcohol) Sex and Gender Information Value Date Recorded Sex Assigned at Not on file Legal Sex Male 10:00 PM EST Gender Identity Not on file Sexual Orientation Not on file Obstetrics History Last Filed Vital Signs Vital Sign Reading Time Taken Comments Blood Pressure 121/59 04/14/2024 8:23 AM EDT Pulse 58 04/14/2024 8:23 AM EDT Temperature - - Respiratory Rate - - Oxygen Saturation - - Inhaled Oxygen Concentration - - Weight 103 kg (226 lb) 08/17/2024 2:56 PM EST Height 180.3 cm (5' 10.98 ) 08/17/2024 2:[address] Body Mass Index 31.53 08/17/2024 2:56 PM EST Plan of Treatment Health Maintenance Due Date Last Done Comments DTaP,Tdap,and Td Vaccines (1 - Tdap) 1989 Hepatitis B Vaccines (1 of 3 - 19+ 3-dose series) 1989 Pneumococcal Vaccine: 50+ Years (1 of 1 - PCV) 2020 Zoster Vaccines (1 of 2) 2020 Colorectal Cancer Screening: Colonoscopy 08/08/2022 HIV Screening 08/08/2022 Hepatitis C Screening 08/08/2022 Social Influencers of Health Screening 08/08/2022 Hypertension/CHF/CAD Annual BMP Blood Test 03/28/2024 12/22/2022, 09/21/2022, 09/20/2022, Additional history exists Depression Screening 08/30/2024 COVID-19 Vaccine ( season) 2025 01/18/2021, 12/28/2020 Influenza Vaccine (#1) 2025 Cholesterol Screening (Lipid Panel) 04/21/2028 04/21/2023 HIB Vaccines Aged Out No longer eligi ble based on patient's age to complete this topic HPV Vaccines Aged Out No longer eligi ble based on patient's age to complete this topic Hepatitis A Vaccines Aged Out No long er eligible based on patient's age to complete this topic IPV Vaccines Aged Out No longer eligi ble based on patient's age to complete this topic MMR Vaccines Aged Out No longer eligi ble based on patient's age to complete this topic Meningococcal ACWY Vaccine Aged Out N o longer eligible based on patient's age to complete this topic Meningococcal B Vaccine Aged Out No l onger eligible based on patient's age to complete this topic RSV Immunization Patients Under 20 months Aged Out No longer eligible based on patient's age to complete this topic Varicella Vaccines Aged Out No longer eligible based on patient's age to complete this topic Procedures Procedure Name Priority Date/Time Associated Diagnosis Comments LIPID PANEL Routine 04/21/2023 ANNUAL BMP BLOOD TEST Routine 12/22/2022 from Last 3 Months or Most Recently Relevant to Health Maintenance Results * Lipid panel (04/21/2023) Triglycerides 0 mg/dL Comment:No interpretation Cholesterol 0 mg/dL Comment:No interpretation HDL 0 mg/dL Comment:No interpretation LDL Cholesterol 0 mg/dL Comment:No interpretation Blood Venous blood specimen / Unknown Historical Provider LAB BLOOD ORDERABLES Stefany l Result * Annual BMP Blood Test (12/22/2022) Pathologist [facility] Annual BMP Blood Test Abstracted Historical Provider HEALTH MAINTENANCE Final Result from Last 3 Months or Most Recently Relevant to Health Maintenance Insurance [facility] [employer] [id number] Care Teams Retail Merchandiser Relationship Specialty Start Date End Date Tera Foote MD PCP - General Internal Medicine 11/11/18
--- OUTSIDE RECORDS SUMMARY | 2025-05-21 12:16 | XMS_ITS | Encounter Summary ---
Author Organization [facility] Address [address] [place] [address] Care Team Providers Care Lead Systems Developer Name Role Phone Tera Foote MD PhD Primary Care Provider + [phone] Jc Graham MD Unavailable [phone] Encounter Details Date Type Department Care Team (Late st Contact Info) Description 10/02/2022 Scanned Document [facility] Cardiology, Scan Social History Tobacco [...] Office Visit [facility] Cardiology [address] [place] [address] Jc Graham MD [address] [place] [address] documented as of this encounter Visit Diagnoses Not on filedocumented in this encounter Care Teams Lead Systems Developer Relationship Specialty Start Date End Date Tera Foote MD PhD [address] [place] [address] PCP - General Internal Medicine 10/07/22 Jc Graham MD [address] [place] [address] Primary Naturopath Cardiovascular Disease 10/21/23 documented as of this encounter
--- OUTSIDE RECORDS SUMMARY | 2025-05-21 12:16 | XMS_ITS | Encounter Summary ---
Author Organization [facility] Address [address] [place] [address] Care Team Providers Care Hide House Supervisor Name Role Phone Tera Foote MD PhD Primary Care Provider + [phone] Jc Graham MD Unavailable [phone] Encounter Details Date Type Department Care Team (Late st Contact Info) Description 10/12/2022 Scanned Document [facility] Cardiology [address] [place] [phone] Cardiology, Scan Social History Tobacco Use Types [...] Description 09/06/2025 9:15 AM EST Office Visit [facility] Cardiology [place] [address] [place] [address] Jc Graham MD [address] [place] [address] documented as of this encounter Visit Diagnoses Not on filedocumented in this encounter Care Teams Hide House Supervisor Relationship Specialty Start Date End Date Tera Foote MD PhD [address] [place] [address] PCP - General Internal Medicine 10/07/22 Jc Graham MD [address] [place] [address] Primary Needle Valve Operator Cardiovascular Disease 10/21/23 documented as of this encounter
--- OUTSIDE RECORDS SUMMARY | 2025-05-21 12:16 | XMS_ITS | Encounter Summary ---
Author Organization [facility] Address [address] [place] [address] Care Team Providers Care Packaging Supervisor Name Role Phone Tera Foote MD PhD Primary Care Provider + [phone] Jc Graham MD Unavailable [phone] Reason for Visit * Reason Comments Med Change Request Encounter Details Date Type Department Care Team (Late st Contact Info) Description 12/18/2022 Refill [facility] Cardiology [address] [address] Eduardo Fraga PA [address] [place] [address] Med Change Request Social History Tobacco Use [...] 09/06/2025 9:15 AM EST Office Visit [facility] Cardiology [address] [place] [address] Jc Graham MD [address] [place] [address] documented as of this encounter Visit Diagnoses Diagnosis Hypertriglyceridemia Pure hyperglyceridemia Coronary artery disease involving [place] coronary artery of [place] heart without angina pectoris documented in this encounter Care Teams Packaging Supervisor Relationship Specialty Start Date End Date Tera Foote MD PhD [address] [place] [address] PCP - General Internal Medicine 10/07/22 Jc Graham MD [address] [place] [address] Primary [place] Cardiovascular Disease 10/21/23 documented as of this encounter
--- OUTSIDE RECORDS SUMMARY | 2025-05-21 12:16 | XMS_ITS | Clinical Summary ---
Author Organization [facility] Address [address] [place] [address] Care Team Providers Care Lead Front End Developer Name Role Phone Tera Foote MD Primary [...] Advance Directives For more information, please contact: [phone] Documents on File Type Date Recorded Patient Rn Maternal Child Expl anation Advance Directive and Living Will 08/20/2016 8:13 AM Care Teams Lead Front End Developer Relationship Specialty Start Date End Date Tera Foote MD PCP - General Internal Medicine 09/23/21
--- OUTSIDE RECORDS SUMMARY | 2025-05-21 12:16 | XMS_ITS | Encounter Summary ---
Author Organization [facility] Address [address] [place] [address] Care Team Providers Care Manager Of Recruiting Name Role Phone Tera Foote MD PhD Primary Care Provider + [phone] Jc Graham MD Unavailable [phone] Encounter Details Date Type Department Care Team (Late st Contact Info) Description 10/02/2022 Scanned Document [facility] CARDIOLOGY SCAN Cardiology, Scan Social History [...] Description 09/06/2025 9:15 AM EST Office Visit [facility] Cardiology [address] [place] [address] Jc Graham MD [address] [place] [address] documented as of this encounter Visit Diagnoses Not on filedocumented in this encounter Care Teams Manager Of Recruiting Relationship Specialty Start Date End Date Tera Foote MD PhD [address] [place] [id number] PCP - General Internal Medicine 10/07/22 Jc Graham MD [address] [place] [address] Primary Thread Pulling Machine Attendant Cardiovascular Disease 10/21/23 documented as of this encounter
[2025-06-06 14:33] VITALS: BMI 31.5
--- NOTE | 2025-06-07 08:53 | HO.ANESPROP2 ---
Documented by User: Mahnaz William NP 06/07/25 08:58 HPI - Anesthesia Eval Consult details Narrative: 54yo M for Colonoscopy Follows [facility] for CAD with STEMI/cardiac arrest 08/2022 s/p LCx PCI Regular exercise but mild POOLE with high exertion Last office visit 10/[address] depression on EKG. Nuc stress OK PMFSH Active Problems Active Problems: All Active Problems Colon cancer screening (Acute) Past Medical History Medical History (Updated 06/06/25 @ 14:38 by Gladys Parish, NAN) Exercises 3 to 4 times per week Hyperlipidemia Hemochromatosis CAD (coronary artery disease) Cardiac arrest due to underlying cardiac condition Colon cancer screening Family History Family History (Updated 05/17/25 @ 08:30 by Cheyanne Vaughan CNP) Family/Other CAD (coronary artery disease) Surgical History Surgical History (Updated 06/08/25 @ 10:45 by Zoraida Ignacio RN) History of tonsillectomy Hx of cardiac catheterization Hx of right coronary artery stent placement Social History Social History Household Members: Family Alcohol intake: never Patient Tobacco Use Status: Former Tobacco user Use of substances other than those prescribed or required for medical reasons: No Are you DNR?: No Advance Directives: No Advance Directives Information Provided: Yes Poor oral hygiene: No Meds Allergies Allergy/AdvReac Type Severity Reaction Status Date / Time Penicillins Allergy Mild Hives Verified 05/17/25 08:24 Home Medications ?Medication ?Instructions ?Recorded ?Confirmed ?Last Taken ?Type aspirin 81 mg chewable tablet 81 mg PO DAILY 05/07/25 06/06/25 06/07/25 History clopidogrel 75 mg tablet 75 mg PO DAILY 05/07/25 06/06/25 06/03/25 History escitalopram oxalate 20 mg tablet 20 mg PO DAILY 05/07/25 06/06/25 Unknown History ezetimibe 10 mg tablet 10 mg PO DAILY 05/07/25 06/06/25 Unknown History fenofibrate 160 mg tablet 160 mg PO DAILY 05/07/25 06/06/25 Unknown History metoprolol succinate 25 mg 12.5 mg PO BEDTIME 05/07/25 06/06/25 Unknown History tablet,extended release 24 hr rosuvastatin 10 mg tablet 10 mg PO DAILY 05/07/25 06/06/25 Unknown History testosterone 50 mg/5 gram (1 %) 178 mg transdermal QAM 05/17/25 06/08/25 Unknown History transdermal gel Exam Height,Weight and Vital Signs: Height 5 ft 11 in Weight 102.512 kg Narrative Narrative: Nuc Stress 11/2024 -Abn nuc stress test c/w prior infarct -LV persion is mildly abnormal c/w basal inferior/inferolateral Scar. There is no evidence of ischemia -LV function post-stress is nml. Post stress EF 72% -Lyle protocol stress test was performed. Exercised 13.4 METs Assessment and Plan Assessment Anesthesia Assessment: Chart Reviewed Documented by User: Robina Roberts MD 06/08/25 11:28 [facility] Past Medical History Medical History (Updated 06/06/25 @ 14:38 by Gladys Parish, NAN) Exercises 3 to 4 times per week Hyperlipidemia Hemochromatosis CAD (coronary artery disease) Cardiac arrest due to underlying cardiac condition Colon cancer screening Family History Family History (Updated 05/17/25 @ 08:30 by Cheyanne Vaughan CNP) Family/Other CAD (coronary artery disease) Family history of problems with anesthesia: No Surgical History Surgical History (Updated 06/08/25 @ 10:45 by Zoraida Ignacio, NAN) History of tonsillectomy Hx of cardiac catheterization Hx of right coronary artery stent placement History of Problems with Anesthesia: No Social History Social History Household Members: Family Alcohol intake: never Patient Tobacco Use Status: Former Tobacco user Use of substances other than those prescribed or required for medical reasons: No Are you DNR?: No Advance Directives: No Advance Directives Information Provided: Yes Poor oral hygiene: No Meds Allergies Allergy/AdvReac Type Severity Reaction Status Date / Time Penicillins Allergy Mild Hives Verified 05/17/25 08:24 Home Medications ?Medication ?Instructions ?Recorded ?Confirmed ?Last Taken ?Type aspirin 81 mg chewable tablet 81 mg PO DAILY 05/07/25 06/06/25 06/07/25 History clopidogrel 75 mg tablet 75 mg PO DAILY 05/07/25 06/06/25 06/03/25 History escitalopram oxalate 20 mg tablet 20 mg PO DAILY 05/07/25 06/06/25 Unknown History ezetimibe 10 mg tablet 10 mg PO DAILY 05/07/25 06/06/25 Unknown History fenofibrate 160 mg tablet 160 mg PO DAILY 05/07/25 06/06/25 Unknown History metoprolol succinate 25 mg 12.5 mg PO BEDTIME 05/07/25 06/06/25 Unknown History tablet,extended release 24 hr rosuvastatin 10 mg tablet 10 mg PO DAILY 05/07/25 06/06/25 Unknown History testosterone 50 mg/5 gram (1 %) 178 mg transdermal QAM 05/17/25 06/08/25 Unknown History transdermal gel Exam Airway Mallampati Class: II TM Dist: >3cm Neck ROM: Full Heart: rrr Lungs: cta Assessment and Plan Assessment Anesthesia Assessment: Anesthesia Plan Discussed Final Anesthetic Review Family History of Problems with Anesthesia: No History of Problems with Anesthesia: No NPO: Yes ASA Class: II Final Preanesthetic Review: No Changes in Pt Med Stat, Meds/Allgs Chart Reviewed and Consent Obtained/Reviewed Patient Risk: Low Procedure Risk: Low Anesthetic Plan Anesthetic Plan: MAC: Disposition: Standard PACU
[2025-06-08 10:51] VITALS: BMI 30.9
[2025-06-08 10:52] VITALS: BP 126/63; PULSE 54; RESP 16; TEMP 35.9; O2SAT 95
[2025-06-08] MEDS: Lactated Ringers 1,000 ML 100 ML IVCONT (11:07)
--- NOTE | 2025-06-08 11:15 | MHC.SHP ---
Pre-Procedural Eval Section A - 24 Hr Update-Section A only Date of Service: 06/08/25 The patient is an INPATIENT: No Changes since office visit: Yes Patient answered all questions; No Cold of Flu in the past 2 weeks, No New Medical Problems and No Changes in Medication The patient has been examined within 24 hours of the surgical procedure. The History & Physical has been completed within 30 days and I have reviewed it.: Yes Section B - Complete if H&P > 30 days Chief Complaint: screening Allergies: Allergies Allergy/AdvReac Type Severity Reaction Status Date / Time Penicillins Allergy Mild Hives Verified 05/17/25 08:24 Plan Diagnosis/Plan: Unchanged I have reviewed the history and physical and performed a pertinent physical examination on my patient. No changes have occurred unless specified. Time Spent With Patient Time: Total time managing care of this patient today ____ minutes.
[2025-06-08 13:02] VITALS: BP 91/49; PULSE 49; RESP 16; TEMP 37.1; O2SAT 95
--- NOTE | 2025-06-08 13:02 | HO.OPN-COLON ---
Colonoscopy Operative Note Operative Note Date of Service: 06/08/25 Narrative: COLONOSCOPY TILL CECUM WITH SNARE POLYPECTOMY Pre-op diagnosis: Colon cancer screening (First colon). Post-op diagnosis:? Colon polyps, Diverticulosis, hemorrhoids Endoscopist:? Andreea Charles MD Anesthesia:?MAC Consent: Indications for the procedure and potential complications of bleeding, perforation, reaction to medications and missed diagnosis were discussed with the patient and informed consent was obtained. Instrument: Olympus CF H 190 L variable stiffness adult colonoscope Monitoring: Vital signs and clinical assessment, intermittent blood pressure monitoring, continuous EKG monitoring, Pulse oximetry and Carbon Dioxide monitoring were done throughout the procedure. Please see anesthesia flowsheet. Colon withdrawl time was 20 minutes. Procedure: The patient was placed in the left lateral decubitis position and pre-procedure medications were administered. After a digital rectal examination of the ano-rectum, the video colonoscope was inserted into the rectum and advanced through the colon to the cecum. The colonoscope was slowly withdrawn in a retrograde panoramic fashion and the colon mucosa was carefully examined including a retroflexed view of the rectum. Findings and interventions are described below. Procedure Difficulty: without difficulty Findings: Terminal Ileum: Not evaluated Cecum: Normal Ascending Colon: Two 8 to 12 mm sessile polyps in the distal ascending colon - removed with a hot snare. Transverse Colon: Normal Descending Colon: Moderate diverticulosis Sigmoid Colon: Moderate diverticulosis Rectum: Two 5-6 mm sessile polyps - removed with a cold snare. Ano-rectum: Small internal hemorrhoids Colon preparation: Good after some irrigation. [place] Bowel Preparation Scale Right colon; 2 Transverse colon: 2 Left colon; 2 (0 = Unprepared colon segment with mucosa not seen due to solid stool that cannot be cleared. 1 = Portion of mucosa of the colon segment seen, but other areas of the colon segment not well seen due to staining, residual stool and/or opaque liquid. 2 = Minor amount of residual staining, small fragments of stool and/or opaque liquid, but mucosa of colon segment seen well. 3 = Entire mucosa of colon segment seen well with no residual staining, small fragments of stool or opaque liquid) Impression and Post Procedure Diagnosis: Colonoscopy Findings: Four small to medium sized polyps were removed Moderate diverticulosis seen in the left colon small hemorrhoids on retroflexed exam. Plan: I will send a letter with biopsy results. Repeat Colonoscopy in 3-5 years if polyps are adenomatous and 10 year if polyps are hyperplastic. Above findings were reviewed with the patient and relevant handouts were given and the discharge area. BIOPSIES SHOWED: A. Colon, ascending, polyps: Tubular adenomas (4 pieces); negative for high-grade dysplasia and carcinoma. B. Colon, rectal polyps: Hyperplastic polyps, two. Letter sent with biopsy results. Pt was placed on the colon recall list for repeat colon in 5 years.
[2025-06-08 13:15] VITALS: BP 99/55; PULSE 46; RESP 16; O2SAT 95
== END 2025-06-08 14:24 | disposition home or self-care (01) ==
PROVIDERS: PCP Hospitalist; Visit Provider Internal Medicine Gastroenterology
PROC: 0DJD8ZZ Inspection of Lower Intestinal Tract, Via Natural or Artificial Opening Endoscopic (ICD-10-PCS; CPT 45378; principal; 2025-06-08 12:00)
DX: Z12.11 Encounter for screening for malignant neoplasm of colon (principal); K57.90 Diverticulosis of intestine, part unspecified, without perforation or abscess without bleeding; K57.30 Diverticulosis of large intestine without perforation or abscess without bleeding; D12.2 Benign neoplasm of ascending colon; D12.7 Benign neoplasm of rectosigmoid junction; K64.8 Other hemorrhoids
CPT/HCPCS: 45385; 88305; J2250; J2704

== ENCOUNTER → 2025-06-08 10:01 | Outpatient (BNV) | payer OTHER, SELFPAY | PROVIDERS: PCP Hospitalist; Visit Provider Internal Medicine Gastroenterology | DX: Z12.11 Encounter for screening for malignant neoplasm of colon (principal); D12.2 Benign neoplasm of ascending colon; D12.8 Benign neoplasm of rectum; K57.90 Diverticulosis of intestine, part unspecified, without perforation or abscess without bleeding; K64.8 Other hemorrhoids | CPT/HCPCS: 45385 ==